=== PATIENT | male | born 1945 | race Caucasian/White ===

== ENCOUNTER → 2017-05-02 | Outpatient (CLI) | payer MEDICARE ==
[~2017-05-02] MED LIST: ACTOS; AMLO10TA82 PO; ASPI-892; CETI5TAB6; CRESTOR PO; CULTURELLE CAP1 EACH PO; EPIN0.3P2 IM; EQUATE ALLERGY; GLYB2.5T2; LISI10TA; LRT10T; LVT.1T PO; METF-380; METH500T5 PO; OMG1KC; PRAV40TA; PRD20T PO; PRD50T PO; [UNRECOGNIZED DRUG - OTHER]
--- NOTE | 2017-05-02 09:29 | Diagnostic Imaging Report ---
CLINICAL INDICATION: Patient with headache on right side, has a swollen gland per doctor. Patient has a sore throat. No surgeries on either head/neck. EXAMS: 1: Head CT without IV contrast. 2: CT scan of the neck performed without IV contrast. Coronal reformatted images are created. FINDINGS: Head CT scan: There is no evidence of acute cerebral infarct, intracranial hemorrhage, or gross mass effect. There are several focal and patchy areas of low-attenuation white matter changes seen throughout both cerebral hemispheres, likely representing mild chronic small-vessel ischemic disease. There is normal wheat-white matter distinction. The brain parenchymal volume appears appropriate for patient's age. There is no significant midline shift or herniation. There is no evidence of hydrocephalus. The basal cisterns are unremarkable. The skull, extracranial soft tissue, and orbits are unremarkable. There is minimal mucosal thickening involving the ethmoid sinus and right maxillary sinus. Neck CT scan: There is no neck soft tissue mass, fluid collection, or fat stranding seen. The nasopharynx, oropharynx, hypopharynx, and laryngeal soft tissue structures are relatively symmetric with no significant abnormality. The bilateral salivary glands are unremarkable. There are no stones, evidence of dilated ducts, or adjacent fat stranding. Visualized portions of the tongue, sublingual space, and submandibular region show no significant abnormality. There is a small level IA lymph node with fatty hilum seen measuring 7 mm x 4 mm. There is no neck lymphadenopathy. Thyroid gland is obscured by streak artifact and not well visualized on this exam. There is bilateral apical pleural-parenchymal scarring/thickening seen. There is cervical spine degenerative disease with vertebral body spurs noted. IMPRESSION: 1: Age-related brain parenchymal changes with no evidence of acute intracranial process. 2: There is no significant neck soft tissue abnormality seen. There is no neck soft tissue mass, fluid collection, lymphadenopathy, or fat stranding. There is no significant salivary gland abnormality. 3: The thyroid gland is obscured by streak artifact and not appropriately visualized on this exam. If there is concern for thyroid gland abnormality, then thyroid ultrasound would better evaluate. Dictated by: Dictated on workstation # [id number]
== END ==
LOC: RAD 07:47
PROVIDERS: ATTEND Internal Medicine
DX: R51 Headache (principal); R22.1 Localized swelling, mass and lump, neck
CPT/HCPCS: 70450; 70490

== ENCOUNTER 2018-01-06 16:50 | Observation (INO) | payer MEDICARE ==
[~2018-01-06] VITALS: Ht 185.4 cm; Wt 81.4 kg
--- OUTSIDE RECORDS SUMMARY | 2018-01-06 16:56 | XMS REPORT | Continuity of Care Document ---
Author Author [facility] Organization [facility] Address Unknown Phone Unavailable Allergies Active Description Code Type Severity Reaction Onset Reported/Identified Relationship to Patient Clinical Status Yes No Known Drug Allergies [id number] Drug Allergy Mild N/A 06/22/2009 Medications There is no data. Problems Date Dx Coded Attending Type Code Diagnosis Diagnosed By 04/12/2010 Ot 995.0 06/24/2010 Ot 708.9 12/26/2014 MADELEINE CROONADO, DURGA Bryan Ot 959.2 12/26/2014 DURGA SALVADOR MD Ot 959.4 12/26/2014 DURGA SALVADOR MD Ot E819.9 12/26/2014 DURGA SALVADOR MD Ot 250.00 12/26/2014 DURGA SALVADOR MD Ot 272.4 12/26/2014 DURGA SALVADOR MD Ot 401.9 01/02/2015 JAY CORONADO, ARSENIO Gallegos Ot 244.9 01/02/2015 JAY CORONADO, ARSENIO Gallegos Ot 272.4 01/02/2015 JAY CORONADO, ARSENIO Gallegos Ot 562.10 01/02/2015 JAY CORONADO, ARSENIO Gallegos Ot V76.51 01/31/2015 JAY CORONADO, ARSENIO Gallegos Ot 244.9 01/31/2015 JAY CORONADO, ARSENIO Gallegos Ot 272.4 01/31/2015 JAY CORONADO, ARSENIO Gallegos Ot 562.10 01/31/2015 JAY CORONADO, ARSENIO Gallegos Ot V76.51 04/27/2017 JAY CORONADO, ARSENIO Gallegos Ot 244.9 HYPOTHYROIDISM NOS 04/27/2017 JAY CORONADO, ARSENIO Gallegos Ot 272.4 HYPERLIPIDEMIA NEC/NOS 04/27/2017 JAY CORONADO, ARSENIO Gallegos Ot 562.10 DIVERTICULOSIS COLON (W/O MENT OF HEMORR 04/27/2017 JAY CORONADO, ARSENIO Gallegos Ot V76.51 SCREEN MAL NEOP-COLON 04/27/2017 ARSENIO THOMPSON MD Ot 244.9 HYPOTHYROIDISM NOS 04/27/2017 ARSENIO THOMPSON MD Ot 272.4 HYPERLIPIDEMIA NEC/NOS 04/27/2017 ARSENIO THOMPSON MD Ot 562.10 DIVERTICULOSIS COLON (W/O MENT OF HEMORR 04/27/2017 ARSENIO THOMPSON MD Ot V76.51 SCREEN MAL NEOP-COLON 05/24/2017 DURGA SALVADOR MD Ot R22.1 LOCALIZED SWELLING, MASS AND LUMP, NECK 05/24/2017 DURGA SALVADOR MD Ot R51 HEADACHE 06/02/2017 DURGA SALVADOR MD Ot R22.1 LOCALIZED SWELLING, MASS AND LUMP, NECK 06/02/2017 DURGA SALVADOR MD Ot R51 HEADACHE Procedures There is no data. Results There is no data. Encounters ACCT No. Visit Date/Time Discharge Status Pt. Type Provider Facility Loc./Unit Complaint [id number] 05/02/2017 07:47:00 05/02/2017 23:59:59 CLS Outpatient DURGA SALVADOR MD [facility] RAD HEADACHES, RT NECK MASS [id number] 12/30/2014 06:54:00 12/30/2014 23:59:59 CLS Outpatient ARSENIO THOMPSON MD [facility] SDC SCREENING [id number] 12/26/2014 05:56:00 12/26/2014 23:59:59 CLS Outpatient ARSENIO THOMPSON MD [facility] PREOP [id number] 04/23/2014 06:49:00 04/23/2014 23:59:59 CLS Outpatient DURGA SALVADOR MD [facility] CARD [id number] 04/08/2014 10:17:00 04/08/2014 23:59:59 CLS Outpatient DURGA SALVADOR MD [facility] RAD [id number] 12/26/2014 05:56:00 Document Registration [id number] 04/12/2010 19:34:00 Document Registration
--- NOTE | 2018-01-06 17:17 | ED Trauma-Multisystem ---
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 He does not recall striking his head, he does not recall what happened. His brother who was working cattle with him states that he does not believe the cow actually hit him , but rather ran into him and knocked him over. He does have small ecchymosis left scalp, left flank and complains of chest and right lower abdomen pain as well as some neck "stiffness". Severity: Moderate Modifying Factors: No Movement Loss of Consciousness: Unsure Associated Symptoms (Fall): Abdominal Pain, Chest Pain; No Neck Pain Allergies and Home Medications Allergies Coded Allergies: No Known Drug Allergies (Verified , 06/22/09) Home Medications Levothyroxine Sodium 175 Mcg Tablet, 175 MCG PO DAILY, (Reported) Potassium Chloride 10 Meq Tablet.er, 10 MEQ PO BID, (Reported) [Crestor] , 5 MG PO DAILY, (Reported) Patient Home Medication List Home Medication List Reviewed: Yes Review of Systems Constitutional: see HPI Eyes: No Symptoms Reported Ears: No Symptoms Reported Nose: No Symptoms Reported Mouth: No Symptoms Reported Throat: No Symptoms to Report Respiratory: no symptoms reported Cardiovascular: See HPI, Chest Pain Genitourinary: no symptoms reported Musculoskeletal: see HPI Skin: no symptoms reported Psychiatric/Neurological: No Symptoms Reported Past Hrygcug-Gjzoip-Xsnaux Hx Patient Social History Recent Foreign Travel: No Contact w/Someone Who Travel: No Immunizations Up To Date Date of Pneumonia Vaccine: May 28, 2008 Date of Influenza Vaccine: Aug 05, 2014 Physical Exam Vital Signs Vital Signs - First Documented 01/06/18 16:56 Temp 95.5 Pulse 59 Resp 16 B/P (MAP) 160/93 (115) Pulse Ox 99 General Appearance: No Apparent Distress, WD/WN, Other (Alert and oriented to person place time and situation but cannot recall what happened. Cannot recall what he had for lunch. ) Head: Other (left parietal scalp ecchymosis, no hematoma) Eyes: Bilateral Eye Normal Inspection, Bilateral Eye EOMI Ears, Nose, Throat: Hearing Grossly Normal, No Evidence of ENT Injury Neck: Full Range of Motion, Normal Inspection; No Tender Lateral, No Tender Midline Cardiovascular: Regular Rate, Rhythm, Normal Peripheral Pulses Respiratory: Normal Breath Sounds, No Accessory Muscle Use, No Respiratory Distress Gastrointestinal: Normal Bowel Sounds, Soft, Other (right lower abdomen tender to palpation, no abrasion erythema or ecchymosis. ) Extremity: Normal Capillary Refill, Normal Inspection Neurologic/Psychiatric: Alert, Oriented x3, No Motor/Sensory Deficits, Other ( abrasion left flank) Skin: Normal Color, Warm/Dry Angelito Coma Score Best Eye Response (Rampart): (4) Open Spontaneously Best Verbal Response (Angelito): (4) Confused Conversation Best Motor Response (Rampart): (6) Obeys Commands Rampart Total: 14 Progress/Results/Core Measures Lab Results Laboratory Tests Test 01/06/18 17:26 Range/Units White Blood Count 6.8 4.3-11.0 10^3/uL Red Blood Count 4.16 L 4.35-5.85 10^6/uL Hemoglobin 14.0 13.3-17.7 G/DL Hematocrit 41 40-54 % Mean Corpuscular Volume 98 80-99 FL Mean Corpuscular Hemoglobin 34 25-34 PG Mean Corpuscular Hemoglobin Concent 35 32-36 G/DL Red Cell Distribution Width 12.5 10.0-14.5 % Platelet Count 186 130-400 10^3/uL Mean Platelet Volume 9.7 7.4-10.4 FL Neutrophils (%) (Auto) 57 42-75 % Lymphocytes (%) (Auto) 30 12-44 % Monocytes (%) (Auto) 10 0-12 % Eosinophils (%) (Auto) 3 0-10 % Basophils (%) (Auto) 1 0-10 % Neutrophils # (Auto) 3.9 1.8-7.8 X 10^3 Lymphocytes # (Auto) 2.0 1.0-4.0 X 10^3 Monocytes # (Auto) 0.7 0.0-1.0 X 10^3 Eosinophils # (Auto) 0.2 0.0-0.3 10^3/uL Basophils # (Auto) 0.0 0.0-0.1 10^3/uL Prothrombin Time 14.4 12.2-14.7 SEC INR Comment 1.1 0.8-1.4 Activated Partial Thromboplast Time 29 24-35 SEC Sodium Level 142 135-145 MMOL/L Potassium Level 3.7 3.6-5.0 MMOL/L Chloride Level 109 H 98-107 MMOL/L Carbon Dioxide Level 23 21-32 MMOL/L Anion Gap 10 5-14 MMOL/L Blood Urea Nitrogen 13 7-18 MG/DL Creatinine 0.85 0.60-1.30 MG/DL Estimat Glomerular Filtration Rate > 60 BUN/Creatinine Ratio 15 Glucose Level 87 70-105 MG/DL Calcium Level 8.8 8.5-10.1 MG/DL Total Bilirubin 0.6 0.1-1.0 MG/DL Aspartate Amino Transf (AST/SGOT) 24 5-34 U/L Alanine Aminotransferase (ALT/SGPT) 27 0-55 U/L Alkaline Phosphatase 85 40-136 U/L Total Protein 6.4 6.4-8.2 GM/DL Albumin 4.2 3.2-4.5 GM/DL My Orders Orders - ALINA LEHMAN APRN Cbc With Automated Diff (01/06/18 17:07) Protime With Inr (01/06/18 17:07) Partial Thromboplastin Time (01/06/18 17:07) Comprehensive Metabolic Panel (01/06/18 17:07) Ct Head/Face/Cervical Wo (01/06/18 17:07) Ct Chest/Abdomen/Pelvis W (01/06/18 17:07) Ekg Tracing (01/06/18 17:12) Iohexol Injection (Omnipaque 350 Mg/Ml 1 (01/06/18 18:30) Ns (Ivpb) (Sodium Chloride 0.9%) (01/06/18 18:30) Vital Signs/I&O 01/06/18 16:56 Temp 95.5 Pulse 59 Resp 16 B/P (MAP) 160/93 (115) Pulse Ox 99 Diagonstic Imaging: CT Comments NAME: RAHUL BRODY Armando [facility] REC#: [id number] PT STATUS: REG ER : 1945 PHYSICIAN: ALINA LEHMAN APRN ADMIT DATE: 01/06/18/ER *Draft Date of Exam:01/06/18 CT HEAD/FACE/CERVICAL WO PROCEDURE: CT head, face, and cervical spine without contrast. TECHNIQUE: Multiple contiguous axial images were obtained through the head, neck, and facial bones without the use of intravenous contrast. Sagittal and coronal reformations through the cervical spine and facial bones were also performed. INDICATION: Fall. FINDINGS: The ventricles and sulci are within normal limits. There is no hydrocephalus. There is no midline shift. There is no intracranial mass, hemorrhage or extra-axial fluid collection. The sinuses and mastoid air cells are clear. The calvarium is intact. The alignment of the cervical spine is normal. The vertebral body heights are well-maintained. There is multilevel degenerative disc disease and posterior facet arthropathy. There is no fracture or traumatic subluxation. The odontoid is intact and lateral masses are well aligned. The prevertebral soft tissues are within normal limits. The lung apices are clear. IMPRESSION: 1. No acute intracranial abnormality. 2. Moderate cervical spondylosis without acute fracture or traumatic subluxation. Dictated on workstation # [id number] Dict: 01/06/18 1814 Trans: 01/06/18 1820 [id number] Interpreted by: SEE HARRISON MD Electronically signed by Departure Communication (Admissions) Time/Spoke to Admitting Phy: 19:[address] Mora regarding observation for his repetitive questioning asking, concussion symptoms. He agrees to admit observation, every 4 hours neuro checks. Family Conversation NAME: RAHUL BRODY II MED REC#: [id number] PT STATUS: REG ER : 1945 PHYSICIAN: ALINA LEHMAN SENIOR GROUP MANAGER ADMIT DATE: 01/06/18/ER Draft Date of Exam:01/06/18 CT CHEST/ABDOMEN/PELVIS W PROCEDURE: CT chest, abdomen, and pelvis with contrast. TECHNIQUE: Multiple contiguous axial images were obtained through the chest, abdomen, and pelvis after the administration of intravenous contrast. INDICATION: Right lower quadrant tenderness, left flank pain, chest pain. FINDINGS: Chest: The lungs are free of infiltrate. There is no effusion or pneumothorax. A few subcentimeter subpleural nodular foci as benign findings are noted with no dominant or suspicious-appearing chest nodule. There is no thoracic lymphadenopathy. There is mild ectasia of the ascending aorta 3.9 cm. No clint aneurysmal formation. No mural hemorrhage, rupture or dissection. No acute chest abnormality. The ribs nonacute. Abdomen and pelvis: There is no bowel, biliary or urinary tract obstruction. The liver appeared nonfocal. The gallbladder unremarkable. The adrenals unremarkable. 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 There is no pneumatosis or free gas. There are pelvic phleboliths with no opaque ureteral stone. There is no hydronephrosis. There are nonobstructing intrarenal stones in the left kidney. There is no ascites, abscess, hematoma or fluid collection. There is no pericecal inflammatory change. There are no findings suggestive of appendicitis. Prostate, seminal vesicles and urinary bladder appeared nonacute. The osseous structures nonacute. There is no focal inflammatory process. No acute bony abnormality. IMPRESSION: 1. Chest: No acute chest abnormality. No suspicious mass. 2. Abdomen and pelvis: No obstructive features, inflammatory process or acute findings. Nonobstructing renal calculi on the left. Postsurgical changes. Nonobstructive constipation. No inflammatory process, ascites, fluid collection or free air. Dictated on workstation # [id number] Dict: 01/06/18 1826 Trans: 01/06/18 1841 LEIGHA [id number] Interpreted by: DENIZ WEIR Electronically signed by: 1831- Cervical collar removed at this time. 1843- he is very forgetful, repetitively asking "what happened to me?" Impression Primary Impression: Concussion Additional Impression: Chest wall contusion Disposition: ADMITTED INPATIENT Condition: Stable Admissions Decision to Admit Reason: Admit from ER (Trauma) Decision to Admit/Date: Jan 06, 2018 Time/Decision to Admit Time: 19:07 Departure-Patient Inst. Decision time for Depature: 18:44 Referrals: DURGA SALVADOR MD (PCP/Family) Primary Care Physician Patient Instructions: Concussion, Adult (DC) ALINA LEHMAN SENIOR GROUP MANAGER Jan 06, 2018 17:17
[2018-01-06 17:34] LABS: BASOPHILS % (AUTO) 1 % (0-10); EOSINOPHILS # (AUTO) 0.2 10^3/uL (0.0-0.3); EOSINOPHILS % (AUTO) 3 % (0-10); HEMATOCRIT 41 % (40-54); LYMPHOCYTES % (AUTO) 30 % (12-44); MEAN CORPUSCULAR HEMOGLOBIN 34 PG (25-34); MEAN CORPUSCULAR HGB CONC 35 G/DL (32-36); MEAN CORPUSCULAR VOLUME 98 FL (80-99); MEAN PLATELET VOLUME 9.7 FL (7.4-10.4); MONOCYTES # (AUTO) 0.7 X 10^3 (0.0-1.0); MONOCYTES % (AUTO) 10 % (0-12); NEUTROPHILS # (AUTO) 3.9 X 10^3 (1.8-7.8); NEUTROPHILS % (AUTO) 57 % (42-75); PLATELET COUNT 186 10^3/uL (130-400); RED BLOOD COUNT 4.16 10^6/uL (4.35-5.85); RED CELL DISTRIBUTION WIDTH 12.5 % (10.0-14.5); WHITE BLOOD COUNT 6.8 10^3/uL (4.3-11.0)
[2018-01-06 17:45] LABS: INR 1.1 (0.8-1.4); PROTHROMBIN TIME PATIENT 14.4 SEC (12.2-14.7)
[2018-01-06 17:51] LABS: ALANINE AMINOTRANSFERASE 27 U/L (0-55); ALBUMIN 4.2 GM/DL (3.2-4.5); ALKALINE PHOSPHATASE 85 U/L (40-136); BILIRUBIN,TOTAL 0.6 MG/DL (0.1-1.0); BUN/CREATININE RATIO 15; CALCIUM 8.8 MG/DL (8.5-10.1); CARBON DIOXIDE 23 MMOL/L (21-32); CHLORIDE 109 MMOL/L (98-107); CREATININE SERUM 0.85 MG/DL (0.60-1.30); GFR ESTIMATED > 60; GLUCOSE 87 MG/DL (70-105); POTASSIUM 3.7 MMOL/L (3.6-5.0); SODIUM 142 MMOL/L (135-145); TOTAL PROTEIN 6.4 GM/DL (6.4-8.2)
--- NOTE | 2018-01-06 18:21 | Diagnostic Imaging Report ---
PROCEDURE: CT head, face, and cervical spine without contrast. TECHNIQUE: Multiple contiguous axial images were obtained through the head, neck, and facial bones without the use of intravenous contrast. Sagittal and coronal reformations through the cervical spine and facial bones were also performed. INDICATION: Fall. FINDINGS: The ventricles and sulci are within normal limits. There is no hydrocephalus. There is no midline shift. There is no intracranial mass, hemorrhage or extra-axial fluid collection. The sinuses and mastoid air cells are clear. The calvarium is intact. The alignment of the cervical spine is normal. The vertebral body heights are well-maintained. There is multilevel degenerative disc disease and posterior facet arthropathy. There is no fracture or traumatic subluxation. The odontoid is intact and lateral masses are well aligned. The prevertebral soft tissues are within normal limits. The lung apices are clear. IMPRESSION: 1. No acute intracranial abnormality. 2. Moderate cervical spondylosis without acute fracture or traumatic subluxation. Dictated by: Dictated on workstation # [id number]
[2018-01-06] MEDS ORDERED: IOHEXOL 350 MG/ML 100 ML (OMNIPAQUE 350) VIAL IV ONE (18:30)
[2018-01-06] MEDS ORDERED: NS 250 ML (IVPB) BAG IV ONE (18:30)
--- NOTE | 2018-01-06 18:41 | Diagnostic Imaging Report ---
PROCEDURE: CT chest, abdomen, and pelvis with contrast. TECHNIQUE: Multiple contiguous axial images were obtained through the chest, abdomen, and pelvis after the administration of intravenous contrast. INDICATION: Right lower quadrant tenderness, left flank pain, chest pain. FINDINGS: Chest: The lungs are free of infiltrate. There is no effusion or pneumothorax. A few subcentimeter subpleural nodular foci as benign findings are noted with no dominant or suspicious-appearing chest nodule. There is no thoracic lymphadenopathy. There is mild ectasia of the ascending aorta 3.9 cm. No clint aneurysmal formation. No mural hemorrhage, rupture or dissection. No acute chest abnormality. The ribs nonacute. Abdomen and pelvis: There is no bowel, biliary or urinary tract obstruction. The liver appeared nonfocal. The gallbladder unremarkable. The adrenals unremarkable. 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 There is no pneumatosis or free gas. There are pelvic phleboliths with no opaque ureteral stone. There is no hydronephrosis. There are nonobstructing intrarenal stones in the left kidney. There is no ascites, abscess, hematoma or fluid collection. There is no pericecal inflammatory change. There are no findings suggestive of appendicitis. Prostate, seminal vesicles and urinary bladder appeared nonacute. The osseous structures nonacute. There is no focal inflammatory process. No acute bony abnormality. IMPRESSION: 1. Chest: No acute chest abnormality. No suspicious mass. 2. Abdomen and pelvis: No obstructive features, inflammatory process or acute findings. Nonobstructing renal calculi on the left. Postsurgical changes. Nonobstructive constipation. No inflammatory process, ascites, fluid collection or free air. Dictated by: Dictated on workstation # [id number]
--- OUTSIDE RECORDS SUMMARY | 2018-01-06 19:24 | XMS REPORT | Continuity of Care Document ---
Author Author [facility] Organization [facility] Address Unknown Phone Unavailable Allergies Active Description Code Type Severity Reaction Onset Reported/Identified Relationship to Patient Clinical Status Yes No Known Drug Allergies [id number] Drug Allergy Mild N/A 06/22/2009 Medications There is no data. Problems Date Dx Coded Attending Type Code Diagnosis Diagnosed By 04/12/2010 Ot 995.0 06/24/2010 Ot 708.9 12/26/2014 MADELEINE CORONADO, DURGA Bryan Ot 959.2 12/26/2014 DURGA SALVADOR [...] (W/O MENT OF HEMORR 04/27/2017 ARSENIO THOMPSON MD, Ot V76.51 SCREEN MAL NEOP-COLON 05/24/2017 DURGA SALVADOR MD, Ot R22.1 LOCALIZED SWELLING, MASS AND LUMP, NECK 05/24/2017 DURGA SALVADOR MD, Ot R51 HEADACHE 06/02/2017 DURGA SALVADOR MD, Ot R22.1 LOCALIZED SWELLING, MASS AND LUMP, NECK 06/02/2017 DURGA SALVADOR MD, Ot R51 HEADACHE Procedures There is no data. Results Test Result Range Complete blood count (CBC) with automated white blood cell (WBC) differential - 01/06/18 17:26 Blood leukocytes automated count (number/volume) 6.8 10*3/uL 4.3-11.0 Blood erythrocytes automated count (number/volume) 4.16 10*6/uL 4.35-5.85 Venous blood hemoglobin measurement (mass/volume) 14.0 g/dL 13.3-17.7 Blood hematocrit (volume fraction) 41 % 40-54 Automated erythrocyte mean corpuscular volume 98 [foz_us] 80-99 Automated erythrocyte mean corpuscular hemoglobin (mass per erythrocyte) 34 pg 25-34 Automated erythrocyte mean corpuscular hemoglobin concentration measurement ( mass/volume) 35 g/dL 32-36 Automated erythrocyte distribution width ratio 12.5 % 10.0-14.5 Automated blood platelet count (count/volume) 186 10*3/uL 130-400 Automated blood platelet mean volume measurement 9.7 [foz_us] 7.4-10.4 Automated blood neutrophils/100 leukocytes 57 % 42-75 Automated blood lymphocytes/100 leukocytes 30 % 12-44 Blood monocytes/100 leukocytes 10 % 0-12 Automated blood eosinophils/100 leukocytes 3 % 0-10 Automated blood basophils/100 leukocytes 1 % 0-10 Blood neutrophils automated count (number/volume) 3.9 10*3 1.8-7.8 Blood lymphocytes automated count (number/volume) 2.0 10*3 1.0-4.0 Blood monocytes automated count (number/volume) 0.7 10*3 0.0-1.0 Automated eosinophil count 0.2 10*3/uL 0.0-0.3 Automated blood basophil count (count/volume) 0.0 10*3/uL 0.0-0.1 PT panel in platelet poor plasma by coagulation assay - 01/06/18 17:26 Prothrombin time (PT) in platelet poor plasma by coagulation assay 14.4 s 12.2-14.7 INR in platelet poor plasma or blood by coagulation assay 1.1 0.8-1.4 Activated partial thromboplastin time (aPTT) in platelet poor plasma bycoagulation assay - 01/06/18 17:26 Activated partial thromboplastin time (aPTT) in platelet poor plasma bycoagulation assay 29 s 24-35 Comprehensive metabolic panel - 01/06/18 17:26 Serum or plasma sodium measurement (moles/volume) 142 mmol/L 135-145 Serum or plasma potassium measurement (moles/volume) 3.7 mmol/L 3.6-5.0 Serum or plasma chloride measurement (moles/volume) 109 mmol/L 98-107 Carbon dioxide 23 mmol/L 21-32 Serum or plasma anion gap determination (moles/volume) 10 mmol/L 5-14 Serum or plasma urea nitrogen measurement (mass/volume) 13 mg/dL 7-18 Serum or plasma creatinine measurement (mass/volume) 0.85 mg/dL 0.60-1.30 Serum or plasma urea nitrogen/creatinine mass ratio 15 NRG Serum or plasma creatinine measurement with calculation of estimated glomerular filtration rate > NRG Serum or plasma glucose measurement (mass/volume) 87 mg/dL 70-105 Serum or plasma calcium measurement (mass/volume) 8.8 mg/dL 8.5-10.1 Serum or plasma total bilirubin measurement (mass/volume) 0.6 mg/dL 0.1-1.0 Serum or plasma alkaline phosphatase measurement (enzymatic activity/volume) 85 U/L 40-136 Serum or plasma aspartate aminotransferase measurement (enzymatic activity/ volume) 24 U/L 5-34 Serum or plasma alanine aminotransferase measurement (enzymatic activity/volume ) 27 U/L 0-55 Serum or plasma protein measurement (mass/volume) 6.4 g/dL 6.4-8.2 Serum or plasma albumin measurement (mass/volume) 4.2 g/dL 3.2-4.5 Encounters ACCT No. Visit Date/Time Discharge Status Pt. Type Provider Facility Loc./Unit Complaint [id number] 05/02/2017 07:47:00 05/02/2017 23:59:59 CLS Outpatient DURGA SALVADOR MD [facility] RAD HEADACHES, RT NECK MASS [id number] 12/30/2014 06:54:00 12/30/2014 23:59:59 CLS Outpatient ARSENIO THOMPSON MD [facility] SDC SCREENING [id number] 12/26/2014 05:56:00 12/26/2014 23:59:59 CLS Outpatient ARSENIO THOMPSON MD [facility] PREOP [id number] 04/23/2014 06:49:00 04/23/2014 23:59:59 CLS Outpatient DURGA SALVADOR MD [facility] CARD [id number] 04/08/2014 10:17:00 04/08/2014 23:59:59 CLS Outpatient DURGA SALVADOR MD [facility] RAD [id number] 01/06/2018 17:35:00 Document Registration [id number] 12/26/2014 05:56:00 Document Registration [id number] 04/12/2010 19:34:00 Document Registration
[2018-01-06 19:45] VITALS: BP 156/73
[2018-01-06] MEDS ORDERED: CATHETER FLUSH 10 ML SYR IV PRN (20:00)
[2018-01-06] MEDS ORDERED: ACETAMINOPHEN 325 MG TABLET/CAPLET (TYLENOL) PO PRN (20:00)
[2018-01-06] MEDS: CATHETER FLUSH 10 ML SYR IV SCH (22:14)
[2018-01-07] VITALS: BP 132/69
[2018-01-07 03:48] VITALS: BP 134/75
[2018-01-07] MEDS: CATHETER FLUSH 10 ML SYR IV SCH (04:11)
[2018-01-07] MEDS ORDERED: LEVO175T5 PO (05:56)
[2018-01-07] MEDS ORDERED: POTA10TA10 PO (05:56)
[2018-01-07 08:00] VITALS: BP 109/63
--- NOTE | 2018-01-07 09:48 | History & Physicial ---
History of Present Illness History of Present Illness Reason for visit/HPI Fall to the ground, being chased [place] cow [place]. 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 He was brought to the emergency room and unable to remember the events leading to the fall, nor anything that happened thereafter.CT scans of his brain, cervical spine, chest, abdomen and pelvis are negative. Date of Admission Jan 06, 2018 at 7:06 pm Date Seen by Provider: Jan 07, 2018 Time Seen by Provider: 08:20 I consulted on this patient on 01/07/18 09:43 Attending Physician Arsenio Thompson MD Admitting Physician Tyrone Gross MD Consult Allergies and Home Medications Allergies Coded Allergies: No Known Drug Allergies (Verified , 06/22/09) Home Medications Levothyroxine Sodium 175 Mcg Tablet, 175 MCG PO DAILY, (Reported) Potassium Chloride 10 Meq Tablet.er, 10 MEQ PO BID, (Reported) [Crestor] , 5 MG PO DAILY, (Reported) Patient Home Medication List Home Medication List Reviewed: Yes Past Qwejmgs-Jlovaq-Vlgmkz Hx Patient Social History Marrital Status: Employed/Student: self-employed Alcohol Use: Denies Use Recreational Drug Use: No Smoking Status: Never a Smoker Physical Abuse Screen: No Sexual Abuse: No Recent Foreign Travel: No Contact w/other who traveled: No Recent Hopitalizations: No Recent Infectious Disease Expo: No Immunizations Up To Date Pediatric: Yes Date of Pneumonia Vaccine: May 28, 2008 Date of Influenza Vaccine: Aug 05, 2014 Seasonal Allergies Seasonal Allergies: No Surgeries Yes (MINI GASTRIC BYPASS) Abdominal Respiratory No Currently Using CPAP: No Currently Using BIPAP: No Cardiovascular Yes Neurological No Genitourinary No Gastrointestinal No Musculoskeletal No Endocrine History of Endocrine Disorders: Yes (TAKES THYROID MEDICATION UNSURE IF HYPO OR HYPER) Endocrine Disorders: Hypothyroidsim HEENT History of HEENT Disorders: No Cancer No Psychosocial History of Psychiatric Problem: No Blood Transfusions History of Blood Disorders: No Adverse Reaction to a Blood Tr: No Family Medical History Family Hx: Arthritis 19 MOTHER Dementia GRANDMA Neoplasm 19 FATHER (THROAT CANCER AND MULTILPLE MYELOMA) Parkinson's disease PATERNAL GRANDFATHER Constitutional: no symptoms reported EENTM: no symptoms reported Cardiovascular: no symptoms reported Gastrointestinal: no symptoms reported Genitourinary: no symptoms reported Musculoskeletal: joint pain Skin: no symptoms reported Psychiatric/Neurological: No Symptoms Reported Physical Exam Vital Signs Vital Signs - First Documented 01/06/18 01/06/18 16:56 19:35 Temp 95.5 Pulse 59 Resp 16 B/P (MAP) 160/93 (115) Pulse Ox 99 O2 Delivery Room Air Capillary Refill : Less Than 3 Seconds General Appearance: No Apparent Distress HEENT: Normal ENT Inspection Neck: Normal Inspection, Non Tender, Supple Respiratory: Lungs Clear Cardiovascular: Regular Rate, Rhythm Gastrointestinal: Non Tender, Soft Rectal: Deferred Genital/Rectal: Normal Genital Exam Back: Normal Inspection Extremity: Normal Inspection Neurologic/Psychiatric: Alert, Oriented x3 Skin: Warm/Dry Comments 1 cm abrasion over his left parietal region of the scalp. No hematoma. Slight limitation of movements of the right shoulder without any obvious point tenderness. Assessment/Plan Assessment and Plan gentleman with blunt trauma to his body resulting from a fall to the ground and his branch. Negative radiologic evaluation. Neurologic status intact. Could be discharged with instructions to call, with concerns. Admission Diagnosis Admission Status: Observation Clinical Quality Measures DVT/VTE Risk/Contraindication: Risk Factor Score Per Nursin RFS Level Per Nursing on Admit: 2=Moderate ARSENIO THOMPSON MD Jan 07, 2018 9:48 am
--- NOTE | 2018-01-07 09:50 | Discharge Inst-Simple/Standard ---
Discharge Inst-Standard Discharge Medications New, Converted or Re-Newed RX: Other Patient Instructions/Follow Up Plan of Care/Instructions/FU: Tylenol for pain over his right shoulder. To stay off work over the weekend. Call my office if needed Activity as Tolerated: No Goal: Off for over the weekend Discharge Diet: No Restrictions ARSENIO THOMPSON MD Jan 07, 2018 9:49 am
--- NOTE | 2018-01-12 09:20 | Physician Query-Final Dx ---
ROSALBA BLOOD 01/12/18 0920: Final Diagnosis Give Final Diagnosis Please give Final Diagnosis ARSENIO THOMPSON MD 01/12/18 1058: Final Diagnosis Give Final Diagnosis cerebral concussion ROSALBA BLOOD January 12, 2018 09:20 ARSENIO THOMPSON MD January 12, 2018 10:58
== END 2018-01-07 09:49 | disposition home or self-care (01) ==
LOC: EDUNIT# 16:50 → ER 16:52 → UNDOADMOB 19:06 → 4TH 19:06 → UNDODISOB 01-07 10:25
PROVIDERS: ADMIT Surgery; ATTEND Surgery
DX: S06.0X0A Concussion without loss of consciousness, initial encounter (principal); S00.03XA Contusion of scalp, initial encounter; S20.211A Contusion of right front wall of thorax, initial encounter; R07.9 Chest pain, unspecified; E03.9 Hypothyroidism, unspecified; M47.892 Other spondylosis, cervical region; W18.30XA Fall on same level, unspecified, initial encounter; Y92.79 Other farm location as the place of occurrence of the external cause; Y93.K9 Activity, other involving animal care; Z79.899 Other long term (current) drug therapy
CPT/HCPCS: 36415; 70450; 70486; 71260; 72125; 74177; 80053; 85025; 85610; 85730; 93005; G0378

== ENCOUNTER 2019-01-25 02:21 | Emergency (ER) | payer MEDICARE ==
[~2019-01-25] VITALS: Ht 188 cm; Wt 84.8 kg
[~2019-01-25 02:21] MED LIST changes: +LEVO175T5 PO; +POTA10TA10 PO
--- OUTSIDE RECORDS SUMMARY | 2019-01-25 02:28 | XMS REPORT | Continuity of Care Document ---
Author Organization Unknown Address Unknown Allergies Active Description Code Type Severity Reaction Onset Reported/Identified Relationship to Patient Clinical Status Yes No Known Drug Allergies [id number] Drug Allergy Mild N/A 06/22/2009 Medications There is no data. Problems Date Dx Coded Attending Type Code Diagnosis Diagnosed By 04/12/2010 Ot 995.0 06/24/2010 Ot 708.9 12/26/2014 DURGA SALVADOR MD Ot 959.2 12/26/2014 DURGA SALVADOR MD Ot 959.4 12/26/2014 DURGA SALVADOR MD Ot E819.9 12/26/2014 DURGA SALVADOR MD Ot 250.00 12/26/2014 DURGA SALVADOR MD Ot 272.4 12/26/2014 DURGA SALVADOR MD Ot 401.9 01/02/2015 JAY CORONADO, ARSENIO Gallegos Ot 244.9 01/02/2015 JAY CORONADO, ARSENIO Galleogs Ot 272.4 01/02/2015 JAY CORONADO, ARSENIO Gallegos Ot 562.10 01/02/2015 JAY CORONADO, ARSENIO Gallegos Ot V76.51 01/31/2015 JAY CORONADO, ARSENIO Gallegos Ot 244.9 01/31/2015 JAY CORONADO, ARSENIO Gallegos Ot 272.4 01/31/2015 JAY CORONADO, ARSENIO Gallegos Ot 562.10 01/31/2015 JAY CORONADO, ARSENIO Gallegos Ot V76.51 04/27/2017 ARSENIO THOMPSON MD Ot 244.9 HYPOTHYROIDISM NOS 04/27/2017 JAY CORONADO, ARSENIO Gallegos Ot 272.4 HYPERLIPIDEMIA NEC/NOS 04/27/2017 JAY CORONADO, ARSENIO Gallegos Ot 562.10 DIVERTICULOSIS COLON (W/O MENT OF HEMORR 04/27/2017 ARSENIO THOMPSON MD Ot V76.51 SCREEN MAL NEOP-COLON 04/27/2017 ARSENIO [...] 06/02/2017 DURGA SALVADOR MD Ot R51 HEADACHE 01/06/2018 ARSENIO THOMPSON MD Ot 244.9 HYPOTHYROIDISM NOS 01/06/2018 ARSENIO THOMPSON MD Ot 272.4 HYPERLIPIDEMIA NEC/NOS 01/06/2018 ARSENIO THOMPSON MD Ot 562.10 DIVERTICULOSIS COLON (W/O MENT OF HEMORR 01/06/2018 ARSENIO THOMPSON MD Ot V76.51 SCREEN MAL NEOP-COLON 01/06/2018 DURGA SALVADOR MD Ot R22.1 LOCALIZED SWELLING, MASS AND LUMP, NECK 01/06/2018 DURGA SALVADOR MD Ot R51 HEADACHE 01/07/2018 ARSENIO THOMPSON MD Ot E03.9 HYPOTHYROIDISM, UNSPECIFIED 01/07/2018 ARSENIO THOMPSON MD Ot M47.892 OTHER SPONDYLOSIS, CERVICAL REGION 01/07/2018 ARSENIO THOMPSON MD Ot R07.9 CHEST PAIN, UNSPECIFIED 01/07/2018 ARSENIO THOMPSON MD Ot S00.03XA CONTUSION OF SCALP, INITIAL ENCOUNTER 01/07/2018 ARSNEIO THOMPSON MD Ot S06.0X0A CONCUSSION WITHOUT LOSS OF CONSCIOUSNESS 01/07/2018 ARSENIO THOMPSON MD Ot S20.211A CONTUSION OF RIGHT FRONT WALL OF THORAX, 01/07/2018 ARSENIO THOMPSON MD Ot W18.30XA FALL ON SAME LEVEL, UNSPECIFIED, INITIAL 01/07/2018 ARSENIO THOMPSON MD Ot Y92.[address] 01/07/2018 ARSENIO THOMPSON MD Ot Y93.K9 ACTIVITY, OTHER INVOLVING ANIMAL CARE 01/07/2018 ARSENIO THOMPSON MD Ot 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 01/07/2018 ARSENIO THOMPSON MD Ot E03.9 HYPOTHYROIDISM, UNSPECIFIED 01/07/2018 ARSENIO THOMPSON MD Ot M47.892 OTHER SPONDYLOSIS, CERVICAL REGION 01/07/2018 ARSENIO THOMPSON MD Ot R07.9 CHEST PAIN, UNSPECIFIED 01/07/2018 ARSENIO THOMPSON MD Ot S00.03XA CONTUSION OF SCALP, INITIAL ENCOUNTER 01/07/2018 ARSENIO THOMPSON MD Ot S06.0X0A CONCUSSION WITHOUT LOSS OF CONSCIOUSNESS 01/07/2018 ARSENIO THOMPSON MD Ot S20.211A CONTUSION OF RIGHT FRONT WALL OF THORAX, 01/07/2018 ARSENIO THOMPSON MD Ot W18.30XA FALL ON SAME LEVEL, UNSPECIFIED, INITIAL 01/07/2018 ARSENIO THOMPSON MD Ot Y92.79 [facility] FARM LOC[facility] PLACE 01/07/2018 ARSENIO THOMPSON MD Ot Y93.K9 ACTIVITY, OTHER INVOLVING ANIMAL CARE 01/07/2018 ARSENIO THOMPSON MD Ot 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 01/12/2018 ARSENIO THOMPSON MD Ot E03.9 HYPOTHYROIDISM, UNSPECIFIED 01/12/2018 ARSENIO THOMPSON MD Ot M47.892 OTHER SPONDYLOSIS, CERVICAL REGION 01/12/2018 ARSENIO THOMPSON MD Ot R07.9 CHEST PAIN, UNSPECIFIED 01/12/2018 ARSENIO THOMPSON MD Ot S00.03XA CONTUSION OF SCALP, INITIAL ENCOUNTER 01/12/2018 ARSENIO THOMPSON MD Ot S06.0X0A CONCUSSION WITHOUT LOSS OF CONSCIOUSNESS 01/12/2018 ARSENIO THOMPSON MD Ot S20.211A CONTUSION OF RIGHT FRONT WALL OF THORAX, 01/12/2018 ARSENIO THOMPSON MD Ot W18.30XA FALL ON SAME LEVEL, UNSPECIFIED, INITIAL 01/12/2018 ARSENIO THOMPSON MD Ot Y92.79 [facility] FARM LOCATION PLACE 01/12/2018 ARSENIO THOMPSON MD Ot Y93.K9 ACTIVITY, OTHER INVOLVING ANIMAL CARE 01/12/2018 ARSENIO THOMPSON MD Ot 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 01/21/2018 ANNCHAD Moss MD, Ot E03.9 HYPOTHYROIDISM, UNSPECIFIED 01/21/2018 CHAD JUAREZ MD Ot S09.90XA UNSPECIFIED INJURY OF HEAD, INITIAL ENCO 01/21/2018 CHAD JUAREZ MD, Ot S50.811A ABRASION OF RIGHT FOREARM, INITIAL ENCOU 01/21/2018 CHAD JUAREZ MD, Ot S70.11XA CONTUSION OF RIGHT THIGH, INITIAL ENCOUN 01/21/2018 CHAD JUAREZ MD Ot W55.89XA OTHER CONTACT WITH OTHER MAMMALS, INITIA 01/21/2018 CHAD JUAREZ MD, Ot Z80.7 FAM HX OF MALIG NEOPLM OF LYMPHOID, CLARIBEL 01/21/2018 CHAD JUAREZ MD, Ot Z80.8 FAMILY HISTORY OF MALIGNANT NEOPLASM OF 01/21/2018 CHAD JUAREZ MD, Ot Z98.84 BARIATRIC SURGERY STATUS Procedures There is no data. Results Test [...] plasma albumin measurement (mass/volume) 4.2 g/dL 3.2-4.5 Complete blood count (CBC) with automated white blood cell (WBC) differential - 01/21/18 09:50 Blood leukocytes automated count (number/volume) 6.0 10*3/uL 4.3-11.0 Blood erythrocytes automated count (number/volume) 4.12 10*6/uL 4.35-5.85 Venous blood hemoglobin measurement (mass/volume) 13.6 g/dL 13.3-17.7 Blood hematocrit (volume fraction) 39 % 40-54 Automated erythrocyte mean corpuscular volume 96 [foz_us] 80-99 Automated erythrocyte mean corpuscular hemoglobin (mass per erythrocyte) 33 pg 25-34 Automated erythrocyte mean corpuscular hemoglobin concentration measurement ( mass/volume) 35 g/dL 32-36 Automated erythrocyte distribution width ratio 12.5 % 10.0-14.5 Automated blood platelet count (count/volume) 255 10*3/uL 130-400 Automated blood platelet mean volume measurement 9.2 [foz_us] 7.4-10.4 Automated blood neutrophils/100 leukocytes 59 % 42-75 Automated blood lymphocytes/100 leukocytes 23 % 12-44 Blood monocytes/100 leukocytes 15 % 0-12 Automated blood eosinophils/100 leukocytes 2 % 0-10 Automated blood basophils/100 leukocytes 1 % 0-10 Blood neutrophils automated count (number/volume) 3.6 10*3 1.8-7.8 Blood lymphocytes automated count (number/volume) 1.4 10*3 1.0-4.0 Blood monocytes automated count (number/volume) 0.9 10*3 0.0-1.0 Automated eosinophil count 0.1 10*3/uL 0.0-0.3 Automated blood basophil count (count/volume) 0.0 10*3/uL 0.0-0.1 Encounters ACCT No. Visit Date/Time Discharge Status Pt. Type Provider Facility Loc./Unit Complaint [id number] 01/21/2018 09:28:00 01/21/2018 11:53:00 DIS Emergency ANN CORONAOD, CHAD Ling [facility] ER FALL, FACIAL INJ/BLEEDING [id number] 01/06/2018 19:40:00 01/07/2018 09:49:00 DIS Inpatient ARSENIO THOMPSON MD [facility] 4TH CHI,CONCUSSION [id number] 05/02/2017 07:47:00 05/02/2017 23:59:59 CLS Outpatient DURGA SALVADOR MD [facility] RAD HEADACHES, RT NECK MASS [id number] 12/30/2014 06:54:00 12/30/2014 23:59:59 CLS Outpatient ARSENIO THOMPSON MD [facility] SDC SCREENING [id number] 12/26/2014 05:56:00 12/26/2014 23:59:59 CLS Outpatient ARSENIO THOMPSON MD [facility] PREOP [id number] 04/23/2014 06:49:00 04/23/2014 23:59:59 CLS Outpatient DURGA SALVADOR MD [facility] CARD [id number] 04/08/2014 10:17:00 04/08/2014 23:59:59 CLS Outpatient DURGA SALVADOR MD [facility] RAD [id number] 01/25/2019 02:23:00 ACT Emergency JYOTI CORONADO, RIVER Roberts [facility] ER BACK PAIN [id number] 12/26/2014 05:56:00 Document Registration [id number] 04/12/2010 19:34:00 Document Registration
--- NOTE | 2019-01-25 03:32 | ED Back Pain ---
General Chief Complaint: Back Problems Stated Complaint: BACK PAIN Nursing Triage Note: Pt amb to room #5 w/o difficulty. a&ox4. c/o rt sided flank pain and nausea that began @ 0100 this am. Reports pain is constant stating, "I just cant get comfortable no matter what I do." Denies urinary symtpoms. Nursing Sepsis Screen: No Definite Risk Source of Information: Patient, Spouse Exam Limitations: No Limitations History of Present Illness Date Seen by Provider: January 25, 2019 Time Seen by Provider: 03:18 Initial Comments Patient presents to ER by private conveyance with his spouse and chief complaint of right lower back pain. He has a history of back pain but nothing like this. He rates it as an 8 out of 10 and was accompanied with some nausea. There is no dysuria hematuria or hesitancy. No history of kidney stones. He has a history of sleeve gastrectomy so he does not use NSAIDs. He has not tried taking anything for it tonight. No fever or chills vomiting diarrhea. Allergies and Home Medications Allergies Coded Allergies: No Known Drug Allergies (Verified , 06/22/09) Home Medications Cephalexin 500 Mg Capsule, 500 MG PO BID Prescribed by: RIVER MONTES on 01/25/19444 Hydrocodone Bit/Acetaminophen 1 Tab Tab, 1-2 EACH PO Q6H PRN for PAIN-MODERATE Prescribed by: RIVER MONTES on 01/25/19444 Levothyroxine Sodium 175 Mcg Tablet, 175 MCG PO DAILY, (Reported) Ondansetron 4 Mg Tab.rapdis, 4 MG PO Q6H PRN for NAUSEA/VOMITING Prescribed by: RIVER MONTES on 01/25/19444 Potassium Chloride 10 Meq Tablet.er, 10 MEQ PO BID, (Reported) Tamsulosin HCl 0.4 Mg Cap, 0.4 MG PO HS Prescribed by: RIVER MONTES on 01/25/19444 [Crestor] , 5 MG PO DAILY, (Reported) Patient Home Medication List Home Medication List Reviewed: Yes Review of Systems Constitutional: No chills, No diaphoresis EENTM: No ear discharge, No ear pain Respiratory: No cough, No short of breath Cardiovascular: No chest pain, No edema Gastrointestinal: No abdominal pain, No constipation, No diarrhea; nausea; No vomiting Genitourinary: No discharge, No dysuria, No hematuria Past Djslyet-Nrjgud-Dvdwom Hx Patient Social History Alcohol Use: Occasionally Uses Number of Drinks Today: 0 Alcohol Beverage of Choice: Other Recreational Drug Use: No Smoking Status: Never a Smoker 2nd Hand Smoke Exposure: No Recent Foreign Travel: No Contact w/Someone Who Travel: No Recent Infectious Disease Expo: No Recent Hopitalizations: No Immunizations Up To Date PED Vaccines UTD: Yes Date of Pneumonia Vaccine: May 28, 2008 Date of Influenza Vaccine: Aug 05, 2014 Seasonal Allergies Seasonal Allergies: No Past Medical History Surgeries: Yes (MINI GASTRIC BYPASS) Abdominal Respiratory: No Currently Using CPAP: No Currently Using BIPAP: No Cardiac: Yes Neurological: No Genitourinary: No Gastrointestinal: No Musculoskeletal: No Endocrine: Yes (TAKES THYROID MEDICATION UNSURE IF HYPO OR HYPER) Hypothyroidsim HEENT: No Cancer: No Psychosocial: No Blood Disorders: No Adverse Reaction/Blood Tranf: No Family Medical History Arthritis 19 MOTHER Dementia GRANDMA Neoplasm 19 FATHER (THROAT CANCER AND MULTILPLE MYELOMA) Parkinson's disease PATERNAL GRANDFATHER Physical Exam Vital Signs Vital Signs - First Documented 01/25/19 02:43 Temp 97.6 Pulse 50 Resp 16 B/P (MAP) 165/135 (145) Pulse Ox 99 O2 Delivery Room Air Capillary Refill : Less Than 3 Seconds Height, Weight, BMI Height: 6'2.00" Weight: 187lbs. 8.0oz. 84.248889fb; 23.7 BMI Method:Stated General Appearance: WD/WN, Moderate Distress HEENT: PERRL/EOMI, Pharynx Normal, Moist Mucous Membranes Neck: Full Range of Motion, Normal Inspection Cardiovascular: Regular Rate, Rhythm, Normal Peripheral Pulses Respiratory: No Accessory Muscle Use, No Respiratory Distress Peripheral Pulses: 2+ Radial Pulses (R), 2+ Radial Pulses (L) Gastrointestinal: Normal Bowel Sounds, Non Tender, Soft Back: Normal Inspection; No CVA Tenderness (L); CVA Tenderness (R) Neurologic/Psychiatric: Alert, Oriented x3 Skin: Normal Color, Warm/Dry Progress/Results/Core Measures Results/Orders Lab Results Laboratory Tests Test 01/25/19 02:51 01/25/19 03:02 Range/Units White Blood Count 7.5 4.3-11.0 10^3/uL Red Blood Count 4.37 4.35-5.85 10^6/uL Hemoglobin 14.4 13.3-17.7 G/DL Hematocrit 43 40-54 % Mean Corpuscular Volume 98 80-99 FL Mean Corpuscular Hemoglobin 33 25-34 PG Mean Corpuscular Hemoglobin Concent 34 32-36 G/DL Red Cell Distribution Width 12.9 10.0-14.5 % Platelet Count 196 130-400 10^3/uL Mean Platelet Volume 10.1 7.4-10.4 FL Neutrophils (%) (Auto) 54 42-75 % Lymphocytes (%) (Auto) 30 12-44 % Monocytes (%) (Auto) 9 0-12 % Eosinophils (%) (Auto) 5 0-10 % Basophils (%) (Auto) 1 0-10 % Neutrophils # (Auto) 4.1 1.8-7.8 X 10^3 Lymphocytes # (Auto) 2.3 1.0-4.0 X 10^3 Monocytes # (Auto) 0.7 0.0-1.0 X 10^3 Eosinophils # (Auto) 0.4 H 0.0-0.3 10^3/uL Basophils # (Auto) 0.1 0.0-0.1 10^3/uL Sodium Level 142 135-145 MMOL/L Potassium Level 3.4 L 3.6-5.0 MMOL/L Chloride Level 108 H 98-107 MMOL/L Carbon Dioxide Level 21 21-32 MMOL/L Anion Gap 13 5-14 MMOL/L Blood Urea Nitrogen 14 7-18 MG/DL Creatinine 1.06 0.60-1.30 MG/DL Estimat Glomerular Filtration Rate > 60 BUN/Creatinine Ratio 13 Glucose Level 106 H 70-105 MG/DL Calcium Level 9.1 8.5-10.1 MG/DL Corrected Calcium 8.5-10.1 MG/DL Total Bilirubin 0.7 0.1-1.0 MG/DL Aspartate Amino Transf (AST/SGOT) 28 5-34 U/L Alanine Aminotransferase (ALT/SGPT) 33 0-55 U/L Alkaline Phosphatase 101 40-136 U/L C-Reactive Protein High Sensitivity 0.03 0.00-0.50 MG/DL Total Protein 7.3 6.4-8.2 GM/DL Albumin 4.6 H 3.2-4.5 GM/DL Urine Color YELLOW Urine Clarity VERY CLOUDY H Urine pH 5 5-9 Urine Specific [place] 1.020 1.016-1.022 Urine Protein 2+ H NEGATIVE Urine Glucose (UA) NEGATIVE NEGATIVE Urine Ketones NEGATIVE NEGATIVE Urine Nitrite NEGATIVE NEGATIVE Urine Bilirubin NEGATIVE NEGATIVE Urine Urobilinogen NORMAL NORMAL MG/DL Urine Leukocyte Esterase NEGATIVE NEGATIVE Urine RBC (Auto) 5+ H NEGATIVE Urine RBC TNTC H /HPF Urine WBC RARE /HPF Urine Squamous Epithelial Cells RARE /HPF Urine Crystals NONE /LPF Urine Bacteria TRACE /HPF Urine Casts NONE /LPF Urine Mucus NEGATIVE /LPF Urine Culture Indicated NO My Orders Orders - RIVER MONTES Ct Abd/Pelvis Wo(Kidney Stone) (01/25/19 03:29) Cbc With Automated Diff (01/25/19 03:29) Comprehensive Metabolic Panel (01/25/19 03:29) Hs C Reactive Protein (01/25/19 03:29) Ua Culture If Indicated (01/25/19 03:29) Fentanyl Injection (Sublimaze Injection (01/25/19 03:45) Ondansetron Injection (Zofran Injectio (01/25/19 04:45) Fentanyl Injection (Sublimaze Injection (01/25/19 04:45) Ceftriaxone For Iv Use (Rocephin For I (01/25/19 05:00) Hydrocodone/Apap 5/325 Tablet (Lortab 5 (01/25/19 05:00) Medications Given in ED Current Medications Medications Dose Ordered Sig/Frank Route Start Time Stop Time Status Last Admin Dose Admin Acetaminophen/ Hydrocodone Bitart 1 tab ONCE ONCE PO 01/25/19 05:00 01/25/19 05:01 DC 01/25/19 05:05 1 TAB Ceftriaxone Sodium 1000 mg/ Sterile Water 10 ml @ 200 mls/hr ONCE ONCE IV 01/25/19 05:00 01/25/19 05:02 DC 01/25/19 04:51 200 MLS/HR Fentanyl Citrate 50 mcg ONCE ONCE IVP 01/25/19 03:45 01/25/19 03:46 DC 01/25/19 03:49 50 MCG Fentanyl Citrate 75 mcg ONCE ONCE IVP 01/25/19 04:45 01/25/19 04:46 DC 01/25/19 04:48 75 MCG Ondansetron HCl 4 mg ONCE ONCE IVP 01/25/19 04:45 01/25/19 04:46 DC 01/25/19 04:48 4 MG Vital Signs/I&O 01/25/19 01/25/19 02:43 05:07 Temp 97.6 97.6 Pulse 50 59 Resp 16 16 B/P (MAP) 165/135 (145) 145/86 (105) Pulse Ox 99 99 O2 Delivery Room Air Room Air Blood Pressure Mean: 145 Progress Progress Note : Time: 04:37 Progress Note Fentanyl for pain. He declined anything for nausea at this time. Suspect kidney stone based on clinical exam and a copious blood in the urine. Is a lot of calcifications seen down here the Trigone of the bladder on the right side seen on previous exams as well. Very possible that a 2 mm stone. There is mild right-sided hydronephrosis which would correlate with the stone. Blood urine. He has bilateral nephrolithiasis. We'll treat him for a kidney stone. Diagnostic Imaging Diagonstic Imaging: CT (without contrast) Plain Films/CT/US/NM/MRI: abdomen, pelvis Comments There is some questionable mild right sided hydronephrosis. Approximate 2 mm calcification seen in the pelvis on the right. It is unclear calcifications within or just adjacent to the right UVJ. This was likely present on prior exam seen in 2018. Bilateral nephrolithiasis. Evaluation of the transverse and distal descending colon is limited secondary to poor distention. Some wall thickening of these portions of the colon cannot be excluded. Reviewed: Reviewed Night Hawk Study, Reviewed by Me Departure Impression Primary Impression: Ureteral calculus, right Disposition: 01 HOME, SELF-CARE Condition: Stable Departure-Patient Inst. Decision time for Depature: 04:40 Referrals: MIRTA GARNER MD, JOHN D MD (PCP/Family) Primary Care Physician Patient Instructions: Kidney Stones (DC) Add. Discharge Instructions: Drink plenty of fluids. Caffeine is acceptable. Use the Flomax 1 tablet every night to help the stone pass. Use the hydrocodone one to 2 tablets every 6 hours as needed for pain. Use the Zofran 1 tablet under the tongue every 6 hours as needed for nausea or vomiting. supervisor carbon paper coating the antibiotic and take one capsule twice a day for the next week. Strain your urine to catch the stone. Sometimes the stone will breakup into a fine sand and you will miss it. Usually symptoms resolve within 1-2 days after passing the stone. Take the stone with you to the urologist appointment. Call Dr. Garner, urology and request an appointment tomorrow morning. All discharge instructions reviewed with patient and/or family. Voiced understanding. Scripts Hydrocodone Bit/Acetaminophen (Hydrocodone/Acetaminophen 5/325mg Tablet) 1 Tab Tab 1-2 EACH PO Q6H PRN for PAIN-MODERATE MDD 10, #14 TAB 0 Refills Prov: RIVER MONTES 01/25/19 Tamsulosin HCl (Flomax) 0.4 Mg Cap 0.4 MG PO HS for 7 Days, #7 CAP 0 Refills Prov: RIVER MONTES 01/25/19 Cephalexin (Keflex) 500 Mg Capsule 500 MG PO BID for 7 Days, #14 CAP 0 Refills Prov: RIVER MONTES 01/25/19 Ondansetron (Ondansetron Odt) 4 Mg Tab.rapdis 4 MG PO Q6H PRN for NAUSEA/VOMITING, #12 TAB 0 Refills Prov: RIEVR MONTES 01/25/19 Copy Copies To 1: MIRTA GARNER MD, TITUS J January 25, 2019 03:32
[2019-01-25 03:35] LABS: BILIRUBIN,URINE NEGATIVE (NEGATIVE); CLARITY,URINE VERY CLOUDY; COLOR,URINE YELLOW; GLUCOSE, URINE (UA) NEGATIVE (NEGATIVE); KETONES,URINE NEGATIVE (NEGATIVE); LEUKOCYTE ESTERASE ,URINE NEGATIVE (NEGATIVE); NITRITE,URINE NEGATIVE (NEGATIVE); PH,URINE 5 (5-9); PROTEIN,URINE 2+ (NEGATIVE); UROBILINOGEN,URINE NORMAL (NORMAL)
[2019-01-25 03:36] LABS: BASOPHILS # (AUTO) 0.1 10^3/uL (0.0-0.1); BASOPHILS % (AUTO) 1 % (0-10); EOSINOPHILS # (AUTO) 0.4 10^3/uL (0.0-0.3); EOSINOPHILS % (AUTO) 5 % (0-10); HEMATOCRIT 43 % (40-54); HEMOGLOBIN 14.4 G/DL (13.3-17.7); LYMPHOCYTES # (AUTO) 2.3 X 10^3 (1.0-4.0); LYMPHOCYTES % (AUTO) 30 % (12-44); MEAN CORPUSCULAR HEMOGLOBIN 33 PG (25-34); MEAN CORPUSCULAR HGB CONC 34 G/DL (32-36); MEAN CORPUSCULAR VOLUME 98 FL (80-99); MEAN PLATELET VOLUME 10.1 FL (7.4-10.4); MONOCYTES # (AUTO) 0.7 X 10^3 (0.0-1.0); MONOCYTES % (AUTO) 9 % (0-12); NEUTROPHILS # (AUTO) 4.1 X 10^3 (1.8-7.8); NEUTROPHILS % (AUTO) 54 % (42-75); PLATELET COUNT 196 10^3/uL (130-400); RED CELL DISTRIBUTION WIDTH 12.9 % (10.0-14.5); WHITE BLOOD COUNT 7.5 10^3/uL (4.3-11.0)
[2019-01-25 03:42] LABS: RBC,URINE TNTC /HPF; WBC,URINE RARE /HPF
[2019-01-25 03:43] LABS: BACTERIA,URINE TRACE /HPF; SQUAMOUS EPITHELIAL CELL,UR RARE /HPF
[2019-01-25] MEDS ORDERED: fentaNYL INJECTION 100 MCG/2 ML AMP IVP ONE ×2 (03:45→04:45)
[2019-01-25 03:51] LABS: ALANINE AMINOTRANSFERASE 33 U/L (0-55); ALBUMIN 4.6 GM/DL (3.2-4.5); ALKALINE PHOSPHATASE 101 U/L (40-136); BILIRUBIN,TOTAL 0.7 MG/DL (0.1-1.0); BUN/CREATININE RATIO 13; CALCIUM 9.1 MG/DL (8.5-10.1); CARBON DIOXIDE 21 MMOL/L (21-32); CHLORIDE 108 MMOL/L (98-107); CREATININE SERUM 1.06 MG/DL (0.60-1.30); GFR ESTIMATED > 60; GLUCOSE 106 MG/DL (70-105); POTASSIUM 3.4 MMOL/L (3.6-5.0); SODIUM 142 MMOL/L (135-145); TOTAL PROTEIN 7.3 GM/DL (6.4-8.2)
[2019-01-25] MEDS ORDERED: ACHD5005 PO (04:45)
[2019-01-25] MEDS ORDERED: CEPH-507 PO (04:45)
[2019-01-25] MEDS ORDERED: ONDA4TAB11 PO (04:45)
[2019-01-25] MEDS ORDERED: TAMS0.4C98 PO (04:45)
[2019-01-25] MEDS ORDERED: ONDANSETRON 4 MG/2 ML (SDV) Z0FRAN IVP ONE (04:45)
[2019-01-25] MEDS ORDERED: cefTRIAXone FOR IV USE 1,000 MG in WATER (STERILE) FOR INJECTION 10 ML IV ONE (05:00)
[2019-01-25] MEDS ORDERED: HYDROcodone/APAP 5 MG/325 MG (LORTAB) TAB PO ONE (05:00)
[2019-01-25 05:07] VITALS: BP 145/86
--- NOTE | 2019-01-25 07:22 | Diagnostic Imaging Report ---
PROCEDURE: CT urinary tract, rule out kidney stone. TECHNIQUE: Multiple contiguous axial images were obtained through the abdomen and pelvis without the use of intravenous contrast. Auto Exposure Controls were utilized during the CT exam to meet ALARA standards for radiation dose reduction. INDICATION: Right flank pain. COMPARISON: 01/06/2018 FINDINGS: Included portions of the lung bases are clear. CT abdomen: Since the previous exam, there has been interval migration of 5-6 mm calculus within the mid to distal right ureter (image 108, series 3). Additionally, there appears to be 4 mm calculus at the right UVJ (image 135, series 3). As a result, there is mild asymmetric right-sided hydroureteronephrosis. There is also mild asymmetric stranding of the perirenal and periureteral fat on the right. Multiple additional bilateral nonobstructive renal calculi are seen. No calculi are seen within the left ureter. Additionally, there is no hydroureteronephrosis or other evidence of obstruction on the left. No focal renal masses are seen on this noncontrast exam. The adrenal glands, spleen, pancreas, and liver have an unremarkable noncontrast CT appearance. Postsurgical changes of the stomach are noted. Normal appendix cannot be adequately identified, but there is no pericecal inflammation. Note is made of thickened appearance to the wall of the transverse colon measuring approximately 1 cm. This portion of the colon is, however, decompressed. There is colonic diverticulosis, but no CT evidence of acute diverticulitis. There is no loculated fluid collection, free fluid, or free air within the abdomen. No abnormal mesenteric or retroperitoneal adenopathy is seen. There is moderate scattered calcified aortic and arterial atherosclerosis. Bony structures show no acute abnormalities. CT pelvis: Again, there appears to be a new calculus within the distal right ureter at the UVJ measuring 4 mm. Urinary bladder is otherwise unopacified. Prostate is mildly prominent measuring 5.4 x 5.8 cm. There is no loculated fluid collection, free fluid or free air within the pelvis. No abnormal adenopathy is identified. Bony structures show no acute abnormalities. IMPRESSION: 1. Interval migration of calculi into the right ureter as described above resulting in mild right-sided hydroureteronephrosis. The larger 5-6 mm calculus within the mid to distal right ureter was not described on [facility] report. Discrepancy will be relayed to the ER. 2. Multiple additional bilateral nonobstructive renal calculi. 3. Thickened appearance to the wall of the transverse colon. Findings may be artifactual and related to incomplete distention of this portion of the colon. However, appearance may also be seen with underlying infectious or inflammatory colitis, as well as underlying colonic malignancy. Correlation with colonoscopy or enema is recommended when clinically appropriate. 4. Colonic diverticulosis, but no CT evidence of acute diverticulitis. Report was faxed/called to Dr. Souza by darian at 7:20 am. JESS Gannon, was also notified. Dictated by: Dictated on workstation # [id number]
== END 2019-01-25 05:07 | disposition home or self-care (01) ==
LOC: EDUNIT# 02:21 → ER 02:23
DX: N13.2 Hydronephrosis with renal and ureteral calculous obstruction (principal); E03.9 Hypothyroidism, unspecified; Z98.84 Bariatric surgery status; Z80.0 Family history of malignant neoplasm of digestive organs; Z80.7 Family history of other malignant neoplasms of lymphoid, hematopoietic and related tissues
CPT/HCPCS: 36415; 74176; 80053; 81000; 85025; 86141

== ENCOUNTER 2019-01-27 19:47 | Emergency (ER) | payer MEDICARE ==
[~2019-01-27] VITALS: Ht 185.4 cm; Wt 84.8 kg
[~2019-01-27 19:47] MED LIST changes: +ACHD5005 PO; +CEPH-507 PO; +ONDA4TAB11 PO; +TAMS0.4C98 PO
--- NOTE | 2019-01-27 19:57 | NUR ---
PT STATES HE HAS APPT WITH DR. GARNER (UROLOGY) NEXT TUESDAY.
[2019-01-27] MEDS ORDERED: KETOROLAC 30 MG/ML VIAL IVP STA ×2 (20:14→20:55)
[2019-01-27] MEDS ORDERED: NS IV 1000 ML 1,000 ML IV SCH ×2 (20:14→21:19)
[2019-01-27] MEDS ORDERED: ONDANSETRON 4 MG/2 ML (SDV) Z0FRAN IVP ONE ×2 (20:15→21:00)
[2019-01-27] MEDS ORDERED: morphine INJ 10 MG/ML 1ML (SYR OR VIAL) IVP ONE (20:15)
[2019-01-27] MEDS ORDERED: morphine INJ 10 MG/ML 1ML (SYR OR VIAL) IVP STA (20:18)
--- NOTE | 2019-01-27 20:18 | ED GU-Male ---
General Chief Complaint: Abdominal/GI Problems Stated Complaint: STOMACH PAIN Nursing Triage Note: PT STATES BEING HERE TUESDAY AND DIAGNOSED WITH A KIDNEY STONE. PT STATES THAT PAIN HAS CONSTANT TODAY WITHOUT RELIEF OF HYDROCODONE. PT STATES INCREASE IN VOMITING. PT STATES HE HAS NOT PASSED THE STONE. Source: patient, family ( and grandson) Exam Limitations: no limitations History of Present Illness Date Seen by Provider: January 27, 2019 Time Seen by Provider: 20:10 Initial Comments 73-year-old male patient presents to the emergency department with complaints of a kidney stone that was diagnosed by Dr. Souza at [facility] ED on 01/25/19. Patient states he is scheduled to see Dr. Garner on Tuesday. Patient denies improvement with the hydrocodone. He rates his pain as a 9/10. Patient does have some nausea tonight. 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 Timing/Duration: intermittent, other (2-3 days) Severity/Quality: aching, sharp, stabbing Location: right flank Radiation: other (right low back) Activities at Onset: none Prior Genitourinary Problems: none Modifying Factors: Worsens With Palpation, Worsens With Urinating Allergies and Home Medications Allergies Coded Allergies: No Known Drug Allergies (Verified , 06/22/09) Home Medications Cephalexin 500 Mg Capsule, 500 MG PO BID Prescribed by: RIVER SOUZA on 01/25/19444 Hydrocodone Bit/Acetaminophen 1 Tab Tab, 1-2 EACH PO Q6H PRN for PAIN-MODERATE Prescribed by: RIVER SOUZA on 01/25/19444 Levothyroxine Sodium 175 Mcg Tablet, 175 MCG PO DAILY, (Reported) Ondansetron 4 Mg Tab.rapdis, 4 MG PO Q6H PRN for NAUSEA/VOMITING Prescribed by: RIVER SOUZA on 01/25/19 0445 Ondansetron 8 Mg Tab.rapdis, 8 MG PO Q6H PRN for NAUSEA/VOMITING Prescribed by: SHARON MALIN on 01/27/19 2241 Oxycodone HCl/Acetaminophen 1 Each Tablet, 1 TAB PO Q4H PRN for PAIN-MODERATE Prescribed by: SHARON MALIN on 01/27/19 2214 Phenazopyridine HCl 200 Mg Tablet, 1 TAB PO TID PRN for pain Prescribed by: SHARON MALIN on 01/27/194 Potassium Chloride 10 Meq Tablet.er, 10 MEQ PO BID, (Reported) Tamsulosin HCl 0.4 Mg Cap, 0.4 MG PO HS Prescribed by: RIVER SOUZA on 01/25/19 0445 [Crestor] , 5 MG PO DAILY, (Reported) Patient Home Medication List Home Medication List Reviewed: Yes Review of Systems Review of Systems Constitutional: No chills, No fever, No malaise Respiratory: no symptoms reported Cardiovascular: no symptoms reported Gastrointestinal: see HPI; No abdominal pain, No constipation, No diarrhea, No loss of appetite, No melena; nausea; No vomiting Genitourinary: see HPI; denies burning, denies discharge, denies dysuria; frequency, flank pain (right flank pain); denies hematuria Musculoskeletal: see HPI, back pain (right low back pain) Skin: no symptoms reported Psychiatric/Neurological: No Symptoms Reported All Other Systemes Reviewed Negative Unless Noted: Yes (Negative excepted noted.) Past Jsrfknu-Wqadep-Eldcws Hx Past Med/Social Hx: Reviewed Nursing Past Med/Soc Hx Patient Social History Alcohol Use: Denies Use Number of Drinks Today: II Alcohol Beverage of Choice: Other Recreational Drug Use: No 2nd Hand Smoke Exposure: No Recent Foreign Travel: No Contact w/Someone Who Travel: No Recent Infectious Disease Expo: No Recent Hopitalizations: No Immunizations Up To Date PED Vaccines UTD: Yes Date of Pneumonia Vaccine: May 28, 2008 Date of Influenza Vaccine: Aug 05, 2014 Seasonal Allergies Seasonal Allergies: No Past Medical History Surgeries: Yes (MINI GASTRIC BYPASS) Abdominal Respiratory: No Currently Using CPAP: No Currently Using BIPAP: No Cardiac: Yes Neurological: No Genitourinary: No Gastrointestinal: No Musculoskeletal: No Endocrine: Yes (TAKES THYROID MEDICATION UNSURE IF HYPO OR HYPER) Hypothyroidsim HEENT: No Cancer: No Psychosocial: No Blood Disorders: No Adverse Reaction/Blood Tranf: No Family Medical History Reviewed Nursing Family Hx Arthritis 19 MOTHER Dementia GRANDMA Neoplasm 19 FATHER (THROAT CANCER AND MULTILPLE MYELOMA) Parkinson's disease PATERNAL GRANDFATHER No Pertinent Family Hx Physical Exam Vital Signs Vital Signs - First Documented 01/27/19 19:52 Temp 97.7 Pulse 42 Resp 18 B/P (MAP) 209/98 (135) Pulse Ox 99 O2 Delivery Room Air Capillary Refill : Less Than 3 Seconds Height, Weight, BMI Height: 6'1.00" Weight: 187lbs. 8.0oz. 84.242145xp; 23.7 BMI Method:Stated General Appearance: WD/WN, no apparent distress HEENT: PERRL/EOMI, pharynx normal Neck: supple, normal inspection Cardiovascular: regular rate, rhythm, no edema, no murmur Respiratory: lungs clear, normal breath sounds, no respiratory distress, no accessory muscle use Gastrointestinal: normal bowel sounds, soft, no organomegaly; No distended; guarding (right lower quadrant and right flank guarding); No rebound; tenderness (right lower quadrant and right flank tenderness) Back: normal inspection, CVA tenderness (R); No CVA tenderness (L) Extremities: no pedal edema, normal capillary refill Neurologic/Psychiatric: alert, normal mood/affect, oriented x 3 Skin: normal color, warm/dry Progress/Results/Core Measures Suspected Sepsis Recent Fever Within 48 Hours: No Infection Criteria Present: None New/Unexplained Altered Menta: No Sepsis Screen: No Definite Risk SIRS Temperature:97.7 Pulse: 42 Respiratory Rate: 18 Laboratory Tests 01/27/19 20:30: White Blood Count 11.8H Blood Pressure 209 /98 Mean: 135 Laboratory Tests 01/27/19 20:30: Creatinine 1.24, Platelet Count 193, Total Bilirubin 0.7 Results/Orders Lab Results Laboratory Tests Test 01/27/19 20:30 01/27/19 21:50 Range/Units White Blood Count 11.8 H 4.3-11.0 10^3/uL Red Blood Count 4.40 4.35-5.85 10^6/uL Hemoglobin 14.5 13.3-17.7 G/DL Hematocrit 43 40-54 % Mean Corpuscular Volume 98 80-99 FL Mean Corpuscular Hemoglobin 33 25-34 PG Mean Corpuscular Hemoglobin Concent 34 32-36 G/DL Red Cell Distribution Width 13.1 10.0-14.5 % Platelet Count 193 130-400 10^3/uL Mean Platelet Volume 9.9 7.4-10.4 FL Neutrophils (%) (Auto) 85 H 42-75 % Lymphocytes (%) (Auto) 7 L 12-44 % Monocytes (%) (Auto) 7 0-12 % Eosinophils (%) (Auto) 0 0-10 % Basophils (%) (Auto) 0 0-10 % Neutrophils # (Auto) 10.1 H 1.8-7.8 X 10^3 Lymphocytes # (Auto) 0.8 L 1.0-4.0 X 10^3 Monocytes # (Auto) 0.9 0.0-1.0 X 10^3 Eosinophils # (Auto) 0.1 0.0-0.3 10^3/uL Basophils # (Auto) 0.0 0.0-0.1 10^3/uL Neutrophils % (Manual) 85 % Lymphocytes % (Manual) 8 % Monocytes % (Manual) 5 % Eosinophils % (Manual) 0 % Basophils % (Manual) 0 % Band Neutrophils 2 % Blood Morphology Comment NORMAL Sodium Level 142 135-145 MMOL/L Potassium Level 4.1 3.6-5.0 MMOL/L Chloride Level 106 98-107 MMOL/L Carbon Dioxide Level 21 21-32 MMOL/L Anion Gap 15 H 5-14 MMOL/L Blood Urea Nitrogen 15 7-18 MG/DL Creatinine 1.24 0.60-1.30 MG/DL Estimat Glomerular Filtration Rate 57 BUN/Creatinine Ratio 12 Glucose Level 148 H 70-105 MG/DL Calcium Level 9.5 8.5-10.1 MG/DL Corrected Calcium 8.5-10.1 MG/DL Total Bilirubin 0.7 0.1-1.0 MG/DL Aspartate Amino Transf (AST/SGOT) 41 H 5-34 U/L Alanine Aminotransferase (ALT/SGPT) 41 0-55 U/L Alkaline Phosphatase 105 40-136 U/L Total Protein 7.3 6.4-8.2 GM/DL Albumin 4.7 H 3.2-4.5 GM/DL Urine Color YELLOW Urine Clarity CLEAR Urine pH 5 5-9 Urine Specific [place] 1.020 1.016-1.022 Urine Protein 2+ H NEGATIVE Urine Glucose (UA) NEGATIVE NEGATIVE Urine Ketones 3+ H NEGATIVE Urine Nitrite NEGATIVE NEGATIVE Urine Bilirubin NEGATIVE NEGATIVE Urine Urobilinogen NORMAL NORMAL MG/DL Urine Leukocyte Esterase NEGATIVE NEGATIVE Urine RBC (Auto) 5+ H NEGATIVE Urine RBC 25-50 H /HPF Urine WBC RARE /HPF Urine Crystals NONE /LPF Urine Bacteria NEGATIVE /HPF Urine Casts NONE /LPF Urine Mucus NEGATIVE /LPF Urine Culture Indicated NO My Orders Orders - SHARON MALIN Cbc With Automated Diff (01/27/19 20:14) Comprehensive Metabolic Panel (01/27/19 20:14) Ua Culture If Indicated (01/27/19 20:14) Ed Iv/Invasive Line Start (01/27/19 20:14) Ketorolac Injection (Toradol Injection) (01/27/19 20:14) Morphine Injection (Morphine Injection (01/27/19 20:15) Ondansetron Injection (Zofran Injectio (01/27/19 20:15) Ns Iv 1000 Ml (Sodium Chloride 0.9%) (01/27/19 20:14) Morphine Injection (Morphine Injection (01/27/19 20:18) Manual Differential (01/27/19 20:30) Abdomen, Flat & Upright/Decub (01/27/19 20:41) Ondansetron Injection (Zofran Injectio (01/27/19 21:00) Famotidine Injection (Pepcid Injection) (01/27/19 20:55) Ketorolac Injection (Toradol Injection) (01/27/19 20:55) Fentanyl Injection (Sublimaze Injection (01/27/19 21:19) Ed Iv/Invasive Line Start (01/27/19 21:19) Ns Iv 1000 Ml (Sodium Chloride 0.9%) (01/27/19 21:19) Rx-Oxycodone/Apap 5-325 Mg (Rx-Percocet (01/27/19 22:30) Medications Given in ED Current Medications Medications Dose Ordered Sig/Frank Route Start Time Stop Time Status Last Admin Dose Admin Ondansetron HCl 4 mg ONCE ONCE IVP 01/27/19 21:00 01/27/19 21:01 DC 01/27/19 21:01 4 MG Ondansetron HCl 8 mg ONCE ONCE IVP 01/27/19 20:15 01/27/19 20:17 DC 01/27/19 20:37 8 MG Oxycodone/ Acetaminophen 1 ea Q4H PRN PO 01/27/19 22:30 01/27/19 22:44 DC 01/27/19 22:34 1 EA Vital Signs/I&O 01/27/19 01/27/19 19:52 22:42 Temp 97.7 97.7 Pulse 42 49 Resp 18 18 B/P (MAP) 209/98 (135) 155/90 (111) Pulse Ox 99 99 O2 Delivery Room Air 01/28/19 00:00 Intake Total 2000 ml Balance 2000 ml Capillary Refill : Less Than 3 Seconds Blood Pressure Mean: 135 Diagnostic Imaging Diagonstic Imaging: Xray Plain Films/CT/US/NM/MRI: abdomen Comments Date of Exam:01/27/19 ABDOMEN, FLAT UPRIGHT/DECUB INDICATION: Abdominal pain. COMPARISON: None. EXAMINATION: KUB and upright views of the abdomen were obtained. FINDINGS: Mild constipation without obstruction, ileus or free air. Osseous structures are age-appropriate. IMPRESSION: Mild constipation. Dictated on workstation # [id number] Reviewed: Reviewed by Me (radiology report reviewed by me) Departure Communication (Admissions) Patient seen and evaluated. Initial labs and a KUB obtained. Patient was given 4 mg of morphine and 8 mg of Zofran with little improvement in symptoms. Patient was given an additional 4 mg of Zofran, 30 mg Toradol, and 50 g if no improvement in symptoms. All laboratory and diagnostic findings discussed with the patient. We will plan for discharge to home with Percocet. Patient is to follow-up with Dr. Garner on Tuesday as previously scheduled and he will contact me in my office a Dr. Gross's if needed Tuesday. Impression Primary Impression: Kidney stones Disposition: HOME, SELF-CARE Condition: Improved Departure-Patient Inst. Decision time for Depature: 22:12 Referrals: MIRTA GARNER MD, JOHN D MD (PCP/Family) Primary Care Physician Patient Instructions: Kidney Stones in Adults Add. Discharge Instructions: All discharge instructions reviewed with patient and/or family. Voiced understanding. Medications as instructed. Tylenol [id number] 500 mg by mouth every 6 hours as needed for pain. Drink plenty of fluids including caffeinated beverages. Strain urine as instructed. Follow-up with Dr. Garner as previously instructed. Follow-up with Dr. Gross as an outpatient if needed. Return to the emergency department immediately for worsened symptoms, worsening pain, fever, inability to urinate, or any other concerns. Scripts Ondansetron (Ondansetron Odt) 8 Mg Tab.rapdis 8 MG PO Q6H PRN for NAUSEA/VOMITING, #10 TAB 1 Refill Prov: SHARON MALIN 01/27/19 Phenazopyridine HCl (Pyridium) 200 Mg Tablet 1 TAB PO TID PRN for pain, #30 TAB 0 Refills Prov: SHARON MALIN 01/27/19 Oxycodone HCl/Acetaminophen (Percocet 7.5-325 mg Tablet) 1 Each Tablet 1 TAB PO Q4H PRN for PAIN-MODERATE MDD 4 TABS, #20 TAB 0 Refills Prov: SHARON MALIN 01/27/19 SHARON MALIN January 27, 2019 20:18
[2019-01-27 20:36] LABS: BASOPHILS % (AUTO) 0 % (0-10); EOSINOPHILS # (AUTO) 0.1 10^3/uL (0.0-0.3); EOSINOPHILS % (AUTO) 0 % (0-10); HEMATOCRIT 43 % (40-54); HEMOGLOBIN 14.5 G/DL (13.3-17.7); LYMPHOCYTES # (AUTO) 0.8 X 10^3 (1.0-4.0); LYMPHOCYTES % (AUTO) 7 % (12-44); MEAN CORPUSCULAR HEMOGLOBIN 33 PG (25-34); MEAN CORPUSCULAR HGB CONC 34 G/DL (32-36); MEAN CORPUSCULAR VOLUME 98 FL (80-99); MEAN PLATELET VOLUME 9.9 FL (7.4-10.4); MONOCYTES # (AUTO) 0.9 X 10^3 (0.0-1.0); MONOCYTES % (AUTO) 7 % (0-12); NEUTROPHILS # (AUTO) 10.1 X 10^3 (1.8-7.8); NEUTROPHILS % (AUTO) 85 % (42-75); PLATELET COUNT 193 10^3/uL (130-400); RED CELL DISTRIBUTION WIDTH 13.1 % (10.0-14.5); WHITE BLOOD COUNT 11.8 10^3/uL (4.3-11.0)
[2019-01-27] MEDS ORDERED: FAMOTIDINE 20MG/2ML IV (PEPCID) IV STA (20:55)
[2019-01-27 21:00] LABS: ALANINE AMINOTRANSFERASE 41 U/L (0-55); ALBUMIN 4.7 GM/DL (3.2-4.5); ALKALINE PHOSPHATASE 105 U/L (40-136); BILIRUBIN,TOTAL 0.7 MG/DL (0.1-1.0); BUN/CREATININE RATIO 12; CALCIUM 9.5 MG/DL (8.5-10.1); CARBON DIOXIDE 21 MMOL/L (21-32); CHLORIDE 106 MMOL/L (98-107); CREATININE SERUM 1.24 MG/DL (0.60-1.30); GFR ESTIMATED 57; GLUCOSE 148 MG/DL (70-105); POTASSIUM 4.1 MMOL/L (3.6-5.0); SODIUM 142 MMOL/L (135-145); TOTAL PROTEIN 7.3 GM/DL (6.4-8.2)
[2019-01-27 21:16] LABS: BAND NEUTROPHILS 2 %; BASOPHILS % (MANUAL) 0 %; EOSINOPHILS % (MANUAL) 0 %; LYMPHOCYTES % (MANUAL) 8 %; MONOCYTES % (MANUAL) 5 %; NEUTROPHILS % (MANUAL) 85 %; RBC MORPH NORMAL
[2019-01-27] MEDS ORDERED: fentaNYL INJECTION 100 MCG/2 ML AMP IVP STA (21:19)
[2019-01-27 21:58] LABS: BILIRUBIN,URINE NEGATIVE (NEGATIVE); CLARITY,URINE CLEAR; COLOR,URINE YELLOW; GLUCOSE, URINE (UA) NEGATIVE (NEGATIVE); KETONES,URINE 3+ (NEGATIVE); LEUKOCYTE ESTERASE ,URINE NEGATIVE (NEGATIVE); NITRITE,URINE NEGATIVE (NEGATIVE); PH,URINE 5 (5-9); PROTEIN,URINE 2+ (NEGATIVE); UROBILINOGEN,URINE NORMAL (NORMAL)
--- NOTE | 2019-01-27 22:00 | Diagnostic Imaging Report ---
INDICATION: Abdominal pain. COMPARISON: None. EXAMINATION: KUB and upright views of the abdomen were obtained. FINDINGS: Mild constipation without obstruction, ileus or free air. Osseous structures are age-appropriate. IMPRESSION: Mild constipation. Dictated by: Dictated on workstation # [id number]
[2019-01-27 22:06] LABS: RBC,URINE 25-50 /HPF; WBC,URINE RARE /HPF
[2019-01-27 22:07] LABS: BACTERIA,URINE NEGATIVE /HPF
[2019-01-27] MEDS ORDERED: OXYC1TAB16 PO (22:14)
[2019-01-27] MEDS ORDERED: PHEN-640 PO (22:14)
[2019-01-27] MEDS ORDERED: RX-OXYCODONE/APAP 5-325 MG #4 TAB PK PO PRN (22:30)
[2019-01-27] MEDS ORDERED: ONDA8TAB13 PO (22:41)
[2019-01-27 22:42] VITALS: BP 155/90
== END 2019-01-27 22:44 | disposition home or self-care (01) ==
LOC: EDUNIT# 19:47 → ER 19:48
DX: N20.0 Calculus of kidney (principal); E03.9 Hypothyroidism, unspecified; Z98.84 Bariatric surgery status; Z80.0 Family history of malignant neoplasm of digestive organs; Z80.7 Family history of other malignant neoplasms of lymphoid, hematopoietic and related tissues
CPT/HCPCS: 36415; 74019; 80053; 81000; 85007; 85027

== ENCOUNTER 2019-01-30 14:33 | Outpatient (CLI) | payer MEDICARE ==
[~2019-01-30] VITALS: Ht 188 cm; Wt 84.8 kg
[~2019-01-30 14:33] MED LIST changes: -CHOL200059 PO; -CYAN100088 PO; -ROSU5TAB PO
[2019-01-30] MEDS ORDERED: ROSU5TAB PO (14:59)
[2019-01-30] MEDS ORDERED: CHOL200059 PO (14:59)
[2019-01-30] MEDS ORDERED: CYAN100088 PO (14:59)
== END 2019-01-30 15:10 | disposition home or self-care (01) ==
LOC: PREOP 14:33
PROVIDERS: ATTEND Urology
DX: Z01.818 Encounter for other preprocedural examination (principal)

== ENCOUNTER → 2019-01-30 | Outpatient (CLI) | payer MEDICARE ==
[~2019-01-30] MED LIST changes: +CHOL200059 PO; +CYAN100088 PO; +ONDA8TAB13 PO; +OXYC1TAB16 PO; +PHEN-640 PO; +ROSU5TAB PO
--- NOTE | 2019-01-30 13:07 | Diagnostic Imaging Report ---
Indication: Nephrolithiasis. KUB at 12:53 PM There is opaque suture in left upper and midabdomen. There is large amount of stool in the colon. There is calcified phleboliths in the pelvis. There are 2 small opacities projecting over the region of the inferior pole of the left kidney measuring 3 mm in length each. Impression: Possible left nephrolithiasis. Dictated by: Dictated on workstation # [id number]
== END ==
LOC: RAD 12:36
PROVIDERS: ATTEND Urology
DX: N20.2 Calculus of kidney with calculus of ureter (principal)
CPT/HCPCS: 74018

== ENCOUNTER 2019-01-31 07:49 | Day surgery (SDC) | payer MEDICARE ==
[~2019-01-31] VITALS: Ht 188 cm; Wt 84.8 kg
[2019-01-31] VITALS (9 sets, daily range): BP systolic 126–156; BP diastolic 69–97
[~2019-01-31 07:49] MED LIST changes: +CHOL200059 PO; +CYAN100088 PO; +ROSU5TAB PO
[2019-01-31] MEDS ORDERED: cefTRIAXone FOR IV USE 1,000 MG in WATER (STERILE) FOR INJECTION 10 ML IV ONE (08:15)
--- NOTE | 2019-01-31 08:34 | Diagnostic Imaging Report ---
INDICATION: Preop for lithotripsy. TIME OF EXAMINATION: 8:18 AM. COMPARISON: Correlation is made with the prior exam of one day earlier. FINDINGS: Pelvic calcifications are noted. The most medial right-sided pelvic calcification may represent a distal ureteric calculus. Calcific densities overlie the left renal shadow, consistent with renal calculi. The previously noted right-sided renal calculi on CT are not well seen on today's study. The bowel gas pattern is unremarkable. IMPRESSION: Left-sided renal calculi. There is also a probable distal right ureteric calculus. Dictated by: Dictated on workstation # [id number]
[2019-01-31] MEDS ORDERED: LACTATED RINGERS 1,000 ML IV PRN (08:40)
--- NOTE | 2019-01-31 09:13 | Progress Note-Pre Operative ---
Pre-Operative Progress Note H&P Reviewed The H&P was reviewed, patient examined and no changes noted. Date Seen by Provider: January 31, 2019 Time Seen by Provider: 09:13 Date H&P Reviewed: January 31, 2019 Time H&P Reviewed: 09:13 Pre-Operative Diagnosis: RT DISTAL URETERAL STONES MIRTA GARNER MD January 31, 2019 09:13
[2019-01-31] MEDS ORDERED: fentaNYL INJECTION 100 MCG/2 ML AMP ONE (09:35)
[2019-01-31] MEDS ORDERED: SEVOFLURANE (ULTANE) 15 ML INHAL SOLN ONE ×2 (09:37→09:59)
[2019-01-31] MEDS ORDERED: MIDAZOLAM 2 MG/2 ML (VERSED) VIAL ONE (09:37)
--- NOTE | 2019-01-31 09:43 | Progress Note-Post Operative ---
Post-Operative Progess Note Surgeon (s)/Wine Consultant (s) Surgeon MIRTA GARNER MD Wine Consultant: NONE Pre-Operative Diagnosis RT DISTAL URETERAL STONES Post-Operative Diagnosis SAME Procedure & Operative Findings Date of Procedure 01/31/19 Procedure Performed/Findings RT URETEROSCOPY WITH STONE EXTRACTION Anesthesia Type GENERAL Estimated Blood Loss Estimated blood loss (mL): NONE Specimens/Packing Specimens Removed RT URETERAL STONE Packing: NONE MIRTA GARNER MD January 31, 2019 09:43
--- NOTE | 2019-01-31 09:45 | Discharge Inst-Urology ---
Discharge Inst-Urology Patient Instructions/Follow Up Plan Please make appointment to been seen in office in 2 weeks Stone for analysis post seen by patient ( has it) Increase oral fluids for 48 hours and then as needed. Diet and Activity as tolerated. If questions or concerns contact your physician Or seek help at emergency department. MIRTA GARNER MD January 31, 2019 09:45
[2019-01-31] MEDS ORDERED: KETOROLAC 30 MG/ML VIAL ONE (09:56)
[2019-01-31] MEDS ORDERED: FUROSEMIDE 40 MG/4 ML INJ (LASIX) ONE (09:56)
[2019-01-31] MEDS ORDERED: proPOfol 200 MG/20 ML (DIPRIVAN) VIAL IV ONE (10:04)
[2019-01-31] MEDS ORDERED: LIDOCAINE PF 2% 5 ML (XYLOCAINE) VIAL ONE (10:04)
[2019-01-31] MEDS ORDERED: ONDANSETRON 4 MG/2 ML (SDV) Z0FRAN ONE (10:04)
[2019-01-31] MEDS ORDERED: DEXAMETHASONE 10 MG/ML (DECADRON) 1 ML VIAL ONE (10:04)
[2019-01-31] MEDS ORDERED: HYDROmorphone 2 MG/ML VIAL (DILAUDID) IV ONE (10:15)
[2019-01-31] MEDS ORDERED: ONDANSETRON 4 MG/2 ML (SDV) Z0FRAN IVP PRN (10:15)
--- NOTE | 2019-01-31 12:33 | Anesthesia-General Post-Op ---
General Patient Condition Mental Status/LOC: Same as Preop Cardiovascular: Satisfactory Nausea/Vomiting: Absent Respiratory: Satisfactory Pain: Controlled Complications: Absent Post Op Complications Complications None Follow Up Care/Instructions Patient Instructions None needed. Anesthesia/Patient Condition Patient Condition Patient is doing well, no complaints, stable vital signs, no apparent adverse anesthesia problems. No complications reported per nursing. NIESHA PRICE CRNA January 31, 2019 12:33
--- NOTE | 2019-01-31 14:03 | OPERATIVE REPORT ---
DATE OF SERVICE: 01/31/2019 PREOPERATIVE DIAGNOSES: 1. Right distal ureteral stone. 2. Bilateral renal stones. POSTOPERATIVE DIAGNOSES: 1. Right distal ureteral stone. 2. Bilateral renal stones. OPERATION PERFORMED: Cystoscopy, extraction of right ureteral stone, right ureteroscopy and retrograde urogram. SURGEON: Manas Garner MD ANESTHESIA: General. COMPLICATIONS: None. DESCRIPTION OF PROCEDURE: Under satisfactory general anesthesia, the patient in lithotomy position, genitalia were prepped and draped in the usual sterile fashion. Cystoscope was introduced and the bladder was visualized, abnormality was a stone at the right UVJ. It was grasped with the grasping forceps and removed completely. I went back with the cystoscope and dilated the right ureteral orifice intramural portion to accommodate a 6.9 Czech semirigid ureteroscope. There was no further stone. I removed it, reinserted the cystoscope, inserted a cone tipped ureteral catheter in the right ureteral orifice, injected contrast to confirm the integrity of the ureter. No filling defect. No dilatation. Complete emptying of the system on withdrawing the catheter. The bladder was evacuated. Cystoscope was removed. The patient tolerated the procedure and anesthesia well and was sent to the recovery room in stable condition. PLAN: We will send the stone for analysis after seen by the patient. I have given to his . When he comes to my office in two weeks, we will do complete workup for prevention of stone and give him stone instruction sheet. The plan was fully explained to the . Job ID: [id number] DocumentID: [id number] Dictated Date: 01/31/2019 10:14:21 Drum Sander Setter Date: 01/31/2019 14:02:24 Dictated By: MANAS GARNER MD
== END 2019-01-31 11:52 | disposition home or self-care (01) ==
LOC: SDC 07:49
PROVIDERS: ATTEND Urology
DX: N20.1 Calculus of ureter (principal); N20.0 Calculus of kidney; I10 Essential (primary) hypertension; E11.9 Type 2 diabetes mellitus without complications; E78.5 Hyperlipidemia, unspecified; N40.0 Benign prostatic hyperplasia without lower urinary tract symptoms; N52.9 Male erectile dysfunction, unspecified; E66.9 Obesity, unspecified; Z98.84 Bariatric surgery status; Z68.24 Body mass index [BMI] 24.0-24.9, adult; Z79.899 Other long term (current) drug therapy; Z11.2 Encounter for screening for other bacterial diseases
CPT/HCPCS: 74018; 87081; 88300

== ENCOUNTER 2019-05-09 02:42 | Emergency (ER) | payer MEDICARE ==
[~2019-05-09] VITALS: Ht 188 cm; Wt 84.4 kg
[2019-05-09] MEDS ORDERED: fentaNYL INJECTION 100 MCG/2 ML AMP IVP ONE ×2 (03:00→04:00)
[2019-05-09] MEDS ORDERED: ONDANSETRON 4 MG/2 ML (SDV) Z0FRAN IVP ONE (03:00)
[2019-05-09 03:02] LABS: BASOPHILS # (AUTO) 0.1 10^3/uL (0.0-0.1); BASOPHILS % (AUTO) 1 % (0-10); EOSINOPHILS # (AUTO) 0.2 10^3/uL (0.0-0.3); EOSINOPHILS % (AUTO) 2 % (0-10); HEMATOCRIT 42 % (40-54); HEMOGLOBIN 14.1 G/DL (13.3-17.7); LYMPHOCYTES # (AUTO) 2.5 X 10^3 (1.0-4.0); LYMPHOCYTES % (AUTO) 33 % (12-44); MEAN CORPUSCULAR HEMOGLOBIN 33 PG (25-34); MEAN CORPUSCULAR HGB CONC 34 G/DL (32-36); MEAN CORPUSCULAR VOLUME 100 FL (80-99); MEAN PLATELET VOLUME 9.5 FL (7.4-10.4); MONOCYTES # (AUTO) 0.8 X 10^3 (0.0-1.0); MONOCYTES % (AUTO) 10 % (0-12); NEUTROPHILS % (AUTO) 53 % (42-75); PLATELET COUNT 192 10^3/uL (130-400); RED CELL DISTRIBUTION WIDTH 13.1 % (10.0-14.5); WHITE BLOOD COUNT 7.6 10^3/uL (4.3-11.0)
[2019-05-09] MEDS ORDERED: MULT1CAP54 PO (03:19)
[2019-05-09] MEDS ORDERED: METH500T5 PO (03:19)
[2019-05-09 03:21] LABS: ALANINE AMINOTRANSFERASE 32 U/L (0-55); ALBUMIN 4.5 GM/DL (3.2-4.5); ALKALINE PHOSPHATASE 108 U/L (40-136); BILIRUBIN,TOTAL 0.7 MG/DL (0.1-1.0); BUN/CREATININE RATIO 11; CARBON DIOXIDE 24 MMOL/L (21-32); CHLORIDE 107 MMOL/L (98-107); CREATININE SERUM 1.02 MG/DL (0.60-1.30); GFR ESTIMATED > 60; GLUCOSE 83 MG/DL (70-105); POTASSIUM 3.7 MMOL/L (3.6-5.0); SODIUM 143 MMOL/L (135-145); TOTAL PROTEIN 7.1 GM/DL (6.4-8.2)
[2019-05-09] MEDS ORDERED: NS IV 1000 ML 1,000 ML IV ONE (03:29)
--- NOTE | 2019-05-09 03:33 | ED Abdominal Pain ---
General Chief Complaint: - Urinary Stated Complaint: POSS KIDNEY STONE ON LEFT SIDE Nursing Triage Note: believes he has a kidney stone, has a history of a kidney stone and states this feels the same as before. Sepsis Screen: No Definite Risk Source of Information: Patient, Old Records Exam Limitations: No Limitations (DARBY RAMIREZ MD) History of Present Illness Date Seen by Provider: May 09, 2019 Time Seen by Provider: 02:50 Initial Comments This 73-year-old gentleman presents to the emergency room with complaints of left-sided lower back pain radiating down into the left lower quadrant. He began having severe leg cramps about 01:00. Then about one hour later he developed nausea and the left sided pain. He has a history of recent right- sided ureteral stone requiring lithotripsy. During assessment for that ureteral stone, it was noted that he has multiple renal stones bilaterally. He states his present symptoms feel similar to his recent right-sided ureteral stone. His primary care provider is Dr. Salvador. His urologist is Dr. Garner. (DARBY RAMIREZ MD) Allergies and Home Medications Allergies Coded Allergies: No Known Drug Allergies (Verified , 05/09/19) Home Medications Cholecalciferol (Vitamin D3) 2,000 Unit Tablet, 2,000 UNIT PO DAILY, (Reported) Cyanocobalamin (Vitamin B-12) 1,000 Mcg Tablet, 1,000 MG PO DAILY, (Reported) Levothyroxine Sodium 175 Mcg Tablet, 175 MCG PO DAILY, (Reported) Potassium Chloride 10 Meq Tablet.er, 10 MEQ PO BID, (Reported) Rosuvastatin Calcium 5 Mg Tablet, 5 MG PO HS, (Reported) Patient Home Medication List Home Medication List Reviewed: Yes (DARBY RAMIREZ MD) Review of Systems Review of Systems Constitutional: no symptoms reported EENTM: No Symptoms Reported Respiratory: No Symptoms Reported Cardiovascular: No Symptoms Reported Gastrointestinal: See HPI Genitourinary: See HPI Musculoskeletal: no symptoms reported Skin: no symptoms reported Psychiatric/Neurological: No Symptoms Reported Endocrine: No Symptoms Reported Hematologic/Lymphatic: No Symptoms Reported (DARBY RAMIREZ MD) Past Jutfsgq-Rgxfxh-Ohucwp Hx Past Med/Social Hx: Reviewed and Corrections made (DARBY RAMIREZ MD) Patient Social History Alcohol Use: Regular Use Number of Drinks Today: II Alcohol Beverage of Choice: Other Recreational Drug Use: No 2nd Hand Smoke Exposure: No Recent Foreign Travel: No Contact w/Someone Who Travel: No Recent Infectious Disease Expo: No Recent Hopitalizations: No Physical Abuse: No Sexual Abuse: No Mistreated: No Fear: No (DARBY RAMIREZ MD) Immunizations Up To Date PED Vaccines UTD: Yes Date of Pneumonia Vaccine: May 28, 2008 Date of Influenza Vaccine: Aug 05, 2014 (DARBY RAMIREZ MD) Seasonal Allergies Seasonal Allergies: No (DARBY RAMIREZ MD) Past Medical History Surgeries: Yes (MINI GASTRIC BYPASS, knee scope) Abdominal, Orthopedic, Renal (lithotripsy), Tonsillectomy Respiratory: No Currently Using CPAP: No Currently Using BIPAP: No Cardiac: No Neurological: No Genitourinary: Yes Benign Prostatic Hyperpl, Kidney Stones Gastrointestinal: No Musculoskeletal: No Endocrine: Yes Hypothyroidsim HEENT: No Cancer: No Psychosocial: No Integumentary: No Blood Disorders: No Adverse Reaction/Blood Tranf: No (DARBY RAMIREZ MD) Family Medical History Reviewed Nursing Family Hx (DARBY RAMIREZ MD) Arthritis 19 MOTHER Dementia GRANDMA Neoplasm 19 FATHER (THROAT CANCER AND MULTILPLE MYELOMA) Parkinson's disease PATERNAL GRANDFATHER No Pertinent Family Hx (DARBY RAMIREZ MD) Physical Exam Vital Signs Vital Signs - First Documented 05/09/19 02:44 Temp 96.9 Pulse 40 Resp 18 B/P (MAP) 160/82 (108) Pulse Ox 99 (APOLONIA LINCOLN MD) Vital Signs Capillary Refill : Less Than 3 Seconds (DARBY RAMIREZ MD) Height/Weight/BMI Height: 6'2.00" Weight: 186lbs. 0.0oz. [id number]; 24.0 BMI Method:Stated General Appearance: WD/WN, mild distress HEENT: PERRL/EOMI, normal ENT inspection, pharynx normal Neck: normal inspection Respiratory: lungs clear, normal breath sounds, no respiratory distress, no accessory muscle use Cardiovascular: regular rate, rhythm, no edema, no murmur Gastrointestinal: normal bowel sounds, soft, tenderness (left lower quadrant) Extremities: normal inspection, no pedal edema Back: normal inspection, no vertebral tenderness Neurologic/Psychiatric: electrical unit rebuilder II-XII nml as tested, no motor/sensory deficits, alert, normal mood/affect, oriented x 3 Skin: normal color, warm/dry (DARBY RAMIREZ MD) Progress/Results/Core Measures Results/Orders Lab Results Laboratory Tests Test 05/09/19 02:50 05/09/19 05:00 Range/Units White Blood Count 7.6 4.3-11.0 10^3/uL Red Blood Count 4.23 L 4.35-5.85 10^6/uL Hemoglobin 14.1 13.3-17.7 G/DL Hematocrit 42 40-54 % Mean Corpuscular Volume 100 H 80-99 FL Mean Corpuscular Hemoglobin 33 25-34 PG Mean Corpuscular Hemoglobin Concent 34 32-36 G/DL Red Cell Distribution Width 13.1 10.0-14.5 % Platelet Count 192 130-400 10^3/uL Mean Platelet Volume 9.5 7.4-10.4 FL Neutrophils (%) (Auto) 53 42-75 % Lymphocytes (%) (Auto) 33 12-44 % Monocytes (%) (Auto) 10 0-12 % Eosinophils (%) (Auto) 2 0-10 % Basophils (%) (Auto) 1 0-10 % Neutrophils # (Auto) 4.0 1.8-7.8 X 10^3 Lymphocytes # (Auto) 2.5 1.0-4.0 X 10^3 Monocytes # (Auto) 0.8 0.0-1.0 X 10^3 Eosinophils # (Auto) 0.2 0.0-0.3 10^3/uL Basophils # (Auto) 0.1 0.0-0.1 10^3/uL Sodium Level 143 135-145 MMOL/L Potassium Level 3.7 3.6-5.0 MMOL/L Chloride Level 107 98-107 MMOL/L Carbon Dioxide Level 24 21-32 MMOL/L Anion Gap 12 5-14 MMOL/L Blood Urea Nitrogen 11 7-18 MG/DL Creatinine 1.02 0.60-1.30 MG/DL Estimat Glomerular Filtration Rate > 60 BUN/Creatinine Ratio 11 Glucose Level 83 70-105 MG/DL Calcium Level 9.0 8.5-10.1 MG/DL Corrected Calcium 8.6 8.5-10.1 MG/DL Magnesium Level 2.0 1.6-2.4 MG/DL Total Bilirubin 0.7 0.1-1.0 MG/DL Aspartate Amino Transf (AST/SGOT) 24 5-34 U/L Alanine Aminotransferase (ALT/SGPT) 32 0-55 U/L Alkaline Phosphatase 108 40-136 U/L Total Protein 7.1 6.4-8.2 GM/DL Albumin 4.5 3.2-4.5 GM/DL Thyroid Stimulating Hormone (TSH) 4.37 0.35-4.94 UIU/ML Free Thyroxine 0.93 0.70-1.48 NG/DL Urine Color YELLOW Urine Clarity CLEAR Urine pH 5 5-9 Urine Specific [place] 1.020 1.016-1.022 Urine Protein 2+ H NEGATIVE Urine Glucose (UA) NEGATIVE NEGATIVE Urine Ketones 1+ H NEGATIVE Urine Nitrite NEGATIVE NEGATIVE Urine Bilirubin NEGATIVE NEGATIVE Urine Urobilinogen NORMAL NORMAL MG/DL Urine Leukocyte Esterase NEGATIVE NEGATIVE Urine RBC (Auto) 4+ H NEGATIVE Urine RBC 50-100 H /HPF Urine WBC NONE /HPF Urine Squamous Epithelial Cells 2-5 /HPF Urine Crystals NONE /LPF Urine Bacteria NEGATIVE /HPF Urine Casts NONE /LPF Urine Mucus NEGATIVE /LPF Urine Culture Indicated NO (APOLONIA LINCOLN MD) My Orders Orders - APOLONIA LINCOLN MD Abdomen/Kub [place] (05/09/19 06:41) (APOLONIA LINCOLN MD) Medications Given in ED Current Medications Medications Dose Ordered Sig/Frank Route Start Time Stop Time Status Last Admin Dose Admin Fentanyl Citrate 25 mcg ONCE ONCE IVP 05/09/19 03:00 05/09/19 03:01 DC 05/09/19 03:07 25 MCG Fentanyl Citrate 50 mcg ONCE ONCE IVP 05/09/19 04:00 05/09/19 04:01 DC 05/09/19 03:55 50 MCG Ketorolac Tromethamine 15 mg ONCE ONCE IVP 05/09/19 06:15 05/09/19 06:16 DC 05/09/19 06:19 15 MG Lactated Ringer's 1,000 ml @ 0 mls/hr Q0M ONCE IV 05/09/19 05:12 05/09/19 05:14 DC 05/09/19 05:19 1,000 MLS/HR Ondansetron HCl 4 mg ONCE ONCE IVP 05/09/19 03:00 05/09/19 03:01 DC 05/09/19 03:07 4 MG Promethazine HCl 12.5 mg ONCE ONCE IVP 05/09/19 04:30 05/09/19 04:31 DC 05/09/19 04:37 12.5 MG Promethazine HCl 12.5 mg ONCE ONCE IVP 05/09/19 05:45 05/09/19 05:46 DC 05/09/19 05:40 12.5 MG Sodium Chloride 1,000 ml @ 0 mls/hr Q0M ONCE IV 05/09/19 03:29 05/09/19 03:31 DC 05/09/19 03:39 1,000 MLS/HR (APOLONIA LINCOLN MD) Vital Signs/I&O 05/09/19 02:44 Temp 96.9 Pulse 40 Resp 18 B/P (MAP) 160/82 (108) Pulse Ox 99 (APOLONIA LINCOLN MD) Blood Pressure Mean: 108 Progress Progress Note #1: Time: 05:10 Progress Note UA is pending. Patient cannot urinate until after completing 1 L of IV fluid. Patient has received multiple doses of narcotic pain medication. The initial Toradol dose did not improve his pain. He received Zofran but still had a small amount of vomiting. Refractory nausea and vomiting is being treated with Phenergan. Once UA results return, a decision on imaging modality will be made. Progress Note #2: Time: 05:34 Progress Note Patient's pain is better controlled now after multiple doses of opioids. However, he is still dry heaving even after Zofran 8 mg and Phenergan 12.5 mg. We will repeat the Phenergan dose. UA results and with a significant amount of hematuria. CT stone search study has been ordered. (DARBY RAMIREZ MD) Progress Note : Time: 07:00 Progress Note Seen and evaluated the patient. Overall he is doing much better. CT results note 7 mm stone at the level of L4 in the mid ureter. Does have some perinephric stranding/edema. I did discuss the case with Dr. Garner. He would like to see him in office. Unfortunately the ultrasound truck was here yesterday. We will prescribe pain control to get him until next Tuesday or Tuesday and Dr. Garner will follow with the anticipation of setting up for ultrasound destruction of stone or other procedures as indicated. This was discussed with the patient and family. Discharged home with return precautions. Patient and family verbalize understanding instructions and agreement with plan. KUB ordered and reviewed by me and does show stone in position similar to CT (APOLONIA LINCOLN MD) Diagnostic Imaging Diagonstic Imaging: CT Plain Films/CT/US/NM/MRI: abdomen, pelvis Comments [facility], [place] NAME: RAHUL BRODY [facility] REC#: [id number] PT STATUS: REG ER : 1945 PHYSICIAN: DARBY RAMIREZ MD ADMIT DATE: 05/09/19/ER Draft Date of Exam:05/09/19 CT ABD/PELVIS WO(KIDNEY STONE) PROCEDURE: CT urinary tract, rule out kidney stone. TECHNIQUE: Multiple contiguous axial images were obtained through the abdomen and pelvis without the use of intravenous contrast. Auto Exposure Controls were utilized during the CT exam to meet ALARA standards for radiation dose reduction. INDICATION: Abdominal pain. Comparison with 01/25/2019. FINDINGS: There is moderate hydronephrosis with perinephric fluid. There is a 7 mm obstructing calculus in the mid left ureter at the level of L4. There are at least 3 additional calculi in the left renal calyces. Small calculus right renal calyx. Lung bases are clear. Liver appears normal. Gallbladder and bile ducts are normal. Pancreas and spleen are normal. Adrenal glands are not enlarged. Bowel gas pattern is normal. Aorta shows mild atherosclerotic change. There is a large amount of stool within the rectum. IMPRESSION: 1. Obstructive uropathy due to 7 mm stone mid left ureter at the level of L4. There is perinephric edema. 2. Considerable stool burden throughout the colon with impacted stool in the rectal vault. Dictated on workstation # [id number] Dict: 05/09/19 0629 Trans: 05/09/19 0638 SARA [id number] Interpreted by: JOSE GONZALEZ MD Electronically signed by: Reviewed: Reviewed by Me Diagonstic Imaging: Xray Plain Films/CT/US/NM/MRI: abdomen Comments 7 mm stone left side level of L4 (APOLONIA LINCOLN MD) Departure Impression Primary Impression: Left ureteral stone Disposition: 01 HOME, SELF-CARE Condition: Stable Departure-Patient Inst. Decision time for Depature: 07:06 (APOLONIA LINCOLN MD) Referrals: MIRTA GARNER MD, JOHN D MD (PCP/Family) Primary Care Physician Patient Instructions: Kidney Stones (DC), How to Strain Your Urine Add. Discharge Instructions: All discharge instructions reviewed with patient and/or family. Voiced understanding. Call Dr. Garner's office today for appointment in the next few days. Take medications as directed. Drink plenty of fluids. Return for worse pain, fever, vomiting, weakness, breathing problems or other concerns as needed. Scripts Tamsulosin HCl (Flomax) 0.4 Mg Cap 0.4 MG PO DAILY, #14 CAP 0 Refills Prov: APOLONIA LINCOLN MD 05/09/19 Ondansetron HCl (Ondansetron HCl) 8 Mg Tablet 8 MG PO Q6H PRN for NAUSEA/VOMITING, #10 TAB 0 Refills Prov: APOLONIA LINCOLN MD 05/09/19 Oxycodone HCl/Acetaminophen (Oxycodon-Acetaminophen 7.5-325) 1 Each Tablet 1 EACH PO Q6H PRN for PAIN-MODERATE MDD 4 for 7 Days, #20 TAB 0 Refills Prov: APOLONIA LINCOLN MD 05/09/19 Cephalexin (Cephalexin) 500 Mg Tablet 500 MG PO BID, #14 TAB 0 Refills Prov: APOLONIA LINCOLN MD 05/09/19 Copy Copies To 1: MIRTA GARNER MD Copies To 2: DURGA SALVADOR MD, JOSHUA T MD May 09, 2019 03:33 APOLONIA LINCOLN MD May 09, 2019 07:06
[2019-05-09 03:51] LABS: FREE T4 (FREE THYROXINE) 0.93 NG/DL (0.70-1.48)
[2019-05-09] MEDS ORDERED: morphine INJ 10 MG/ML 1ML (SYR OR VIAL) IVP STA ×2 (04:28→05:01)
[2019-05-09] MEDS ORDERED: PROMETHAZINE INJ 25 MG/ML (PHENERGAN) AMP IVP ONE ×2 (04:30→05:45)
[2019-05-09 05:09] LABS: BILIRUBIN,URINE NEGATIVE (NEGATIVE); CLARITY,URINE CLEAR; COLOR,URINE YELLOW; GLUCOSE, URINE (UA) NEGATIVE (NEGATIVE); KETONES,URINE 1+ (NEGATIVE); LEUKOCYTE ESTERASE ,URINE NEGATIVE (NEGATIVE); NITRITE,URINE NEGATIVE (NEGATIVE); PH,URINE 5 (5-9); PROTEIN,URINE 2+ (NEGATIVE); UROBILINOGEN,URINE NORMAL (NORMAL)
[2019-05-09] MEDS ORDERED: LACTATED RINGERS 1,000 ML IV ONE (05:12)
[2019-05-09 05:19] LABS: BACTERIA,URINE NEGATIVE /HPF; RBC,URINE 50-100 /HPF
[2019-05-09] MEDS ORDERED: KETOROLAC 30 MG/ML VIAL IVP ONE (06:15)
--- NOTE | 2019-05-09 06:38 | Diagnostic Imaging Report ---
PROCEDURE: CT urinary tract, rule out kidney stone. TECHNIQUE: Multiple contiguous axial images were obtained through the abdomen and pelvis without the use of intravenous contrast. Auto Exposure Controls were utilized during the CT exam to meet ALARA standards for radiation dose reduction. INDICATION: Abdominal pain. Comparison with 01/25/2019. FINDINGS: There is moderate hydronephrosis with perinephric fluid. There is a 7 mm obstructing calculus in the mid left ureter at the level of L4. There are at least 3 additional calculi in the left renal calyces. Small calculus right renal calyx. Lung bases are clear. Liver appears normal. Gallbladder and bile ducts are normal. Pancreas and spleen are normal. Adrenal glands are not enlarged. Bowel gas pattern is normal. Aorta shows mild atherosclerotic change. There is a large amount of stool within the rectum. IMPRESSION: 1. Obstructive uropathy due to 7 mm stone mid left ureter at the level of L4. There is perinephric edema. 2. Considerable stool burden throughout the colon with impacted stool in the rectal vault. Dictated by: Dictated on workstation # [id number]
[2019-05-09] MEDS ORDERED: CEPH500T PO (07:11)
[2019-05-09] MEDS ORDERED: OXYC-464 PO (07:11)
[2019-05-09] MEDS ORDERED: ONDA8TAB12 PO (07:11)
[2019-05-09] MEDS ORDERED: TAMS0.4C98 PO (07:11)
[2019-05-09 07:13] VITALS: BP 145/81
--- NOTE | 2019-05-09 07:27 | Diagnostic Imaging Report ---
INDICATION: Followup kidney stone. Kidney stone noted just lateral to the transverse process of L4 on the left measuring approximately 7 mm. This does correlate with the CT finding. There are several calculi overlying the lower pole and upper pole of the left kidney. IMPRESSION: Nephrolithiasis left kidney with calculus mid ureter on the left. Dictated by: Dictated on workstation # [id number]
== END 2019-05-09 07:25 | disposition home or self-care (01) ==
LOC: EDUNIT# 02:42 → ER 02:44
DX: N13.2 Hydronephrosis with renal and ureteral calculous obstruction (principal); N40.0 Benign prostatic hyperplasia without lower urinary tract symptoms; E03.9 Hypothyroidism, unspecified; Z98.84 Bariatric surgery status; Z90.89 Acquired absence of other organs; Z80.59 Family history of malignant neoplasm of other urinary tract organ
CPT/HCPCS: 36415; 74018; 74176; 80053; 81000; 83735; 84439; 84443; 85025; 93005; 93041

== ENCOUNTER 2019-05-11 06:05 | Day surgery (SDC) | payer MEDICARE ==
[2019-05-11] VITALS (12 sets, daily range): BP systolic 151–173; BP diastolic 83–94
[~2019-05-11] VITALS: Ht 188 cm; Wt 84.1 kg
[~2019-05-11 06:05] MED LIST changes: +CEPH500T PO; +MULT1CAP54 PO; +ONDA8TAB12 PO; +OXYC-464 PO
[2019-05-11] MEDS ORDERED: cefTRIAXone FOR IV USE 1,000 MG in WATER (STERILE) FOR INJECTION 10 ML IV ONE (06:15)
[2019-05-11] MEDS ORDERED: ONDANSETRON 4 MG/2 ML (SDV) Z0FRAN ONE (06:41)
[2019-05-11] MEDS ORDERED: proPOfol 200 MG/20 ML (DIPRIVAN) VIAL IV ONE (06:41)
[2019-05-11] MEDS ORDERED: fentaNYL INJECTION 100 MCG/2 ML AMP ONE (06:41)
[2019-05-11] MEDS ORDERED: MIDAZOLAM 2 MG/2 ML (VERSED) VIAL ONE (06:41)
[2019-05-11] MEDS ORDERED: SEVOFLURANE (ULTANE) 15 ML INHAL SOLN ONE ×2 (06:41→07:42)
[2019-05-11] MEDS ORDERED: LIDOCAINE PF 2% 5 ML (XYLOCAINE) VIAL ONE (06:41)
[2019-05-11] MEDS ORDERED: DEXAMETHASONE 10 MG/ML (DECADRON) 1 ML VIAL ONE (06:41)
[2019-05-11] MEDS ORDERED: CATHETER FLUSH 10 ML SYR IV PRN (06:45)
[2019-05-11] MEDS ORDERED: FUROSEMIDE 40 MG/4 ML INJ (LASIX) ONE (06:50)
[2019-05-11] MEDS ORDERED: KETOROLAC 30 MG/ML VIAL ONE (06:50)
[2019-05-11] MEDS ORDERED: LACTATED RINGERS 1,000 ML IV PRN (06:51)
--- NOTE | 2019-05-11 06:53 | Progress Note-Pre Operative ---
Pre-Operative Progress Note H&P Reviewed The H&P was reviewed, patient examined and no changes noted. Date Seen by Provider: May 11, 2019 Time Seen by Provider: 06:52 Date H&P Reviewed: May 11, 2019 Time H&P Reviewed: 06:52 Pre-Operative Diagnosis: LT URETERAL AND RENAL STONES MIRTA GARNER MD May 11, 2019 06:53
--- NOTE | 2019-05-11 06:54 | Progress Note-Post Operative ---
Post-Operative Progess Note Surgeon (s)/Computer Game Designer (s) Surgeon MIRTA GARNER MD Computer Game Designer: NONE Pre-Operative Diagnosis LT URETERAL AND RENAL STONES Post-Operative Diagnosis SAME Procedure & Operative Findings Date of Procedure 05/11/19 Procedure Performed/Findings LT URETEROSCOPY, LT RETROGRADE UROGRAM, URETERAL STONE MANIPULATION AND INSERTION OF STENT Anesthesia Type GENERAL Estimated Blood Loss Estimated blood loss (mL): NONE Specimens/Packing Specimens Removed NONE Packing: NONE MIRTA GARNER MD May 11, 2019 06:54
--- NOTE | 2019-05-11 06:56 | Discharge Inst-Urology ---
Discharge Inst-Urology Reconcile Patient Problems Problems Reviewed?: Yes Patient Instructions/Follow Up Plan/Assessment/Instructions Please make appointment to been seen in office Monday 05/28, KUB prior to it. KUB on way home Increase oral fluids for 48 hours and then as needed. Diet and Activity as tolerated. If questions or concerns contact your physician Or seek help at emergency department. MIRTA GARNER MD May 11, 2019 06:56
--- NOTE | 2019-05-11 07:16 | Diagnostic Imaging Report ---
INDICATION: Preoperative left ureteral stone. COMPARISON STUDY: KUB from 2 days ago. FINDINGS: Supine view of the abdomen demonstrates a calculi overlying the left L4 transverse process. This has not changed in position since previous exam and is probably within the ureter. IMPRESSION: Stable calculi in the region of the mid left ureter. Dictated by: Dictated on workstation # [id number]
[2019-05-11] MEDS ORDERED: ROCURONIUM 10 MG/ML 5 ML SYRINGE IV ONE (07:19)
[2019-05-11] MEDS ORDERED: morphine INJ 10 MG/ML 1ML (SYR OR VIAL) IVP ONE (08:30)
[2019-05-11] MEDS ORDERED: ONDANSETRON 4 MG/2 ML (SDV) Z0FRAN IVP PRN (08:30)
--- NOTE | 2019-05-11 09:24 | Anesthesia-General Post-Op ---
General Patient Condition Mental Status/LOC: Same as Preop Cardiovascular: Satisfactory Nausea/Vomiting: Absent Respiratory: Satisfactory Pain: Controlled Complications: Absent Post Op Complications Complications None Follow Up Care/Instructions Patient Instructions None needed. Anesthesia/Patient Condition Patient Condition Patient is doing well, no complaints, stable vital signs, no apparent adverse anesthesia problems. No complications reported per nursing. CLAYTON QUEZADA CRNA May 11, 2019 09:24
[2019-05-11] MEDS ORDERED: TAMS0.4C98 PO (09:36)
--- NOTE | 2019-05-11 13:07 | Diagnostic Imaging Report ---
INDICATION: Nephrolithiasis, stent placement. TECHNIQUE: Single supine view of the abdomen 10:09 AM CORRELATION STUDY: 05/11/2019 FINDINGS: Since study performed earlier in the day, there has been placement of a left ureteral stent. The previously noted calcification over the L4 transverse process tip is not visualized. There are few fragmented calcifications superimposed over the stent just below the SI joint on the left. Multiple calcific densities do project over the left renal silhouette. A few calcifications demonstrated within the pelvis, moderate amount of overlying bowel gas and stool present. Surgical suture line over the left upper quadrant. IMPRESSION: 1. Interval placement of left ureteral stent. The previously noted calcifications over the left L4 transverse process not visualized. May be a few fragmented stones projecting over the aspect of the stent. Additional stone superimposed over the left kidney. Dictated by: Dictated on workstation # [id number]
--- NOTE | 2019-05-11 14:54 | OPERATIVE REPORT ---
DATE OF SERVICE: 05/11/2019 PREOPERATIVE DIAGNOSIS: Left proximal ureteral and left renal stones. POSTOPERATIVE DIAGNOSIS: Left proximal ureteral and left renal stones. OPERATIONS PERFORMED: Left ureteroscopy, retrograde urogram, stone manipulation and insertion of left stent. SURGEON: Manas Garner MD ANESTHESIA: General. COMPLICATIONS: None. DESCRIPTION OF PROCEDURE: Under satisfactory general anesthesia, the patient in lithotomy position, genitalia were prepped and draped in the usual sterile fashion. Cystoscope was introduced under vision. The anterior urethra was normal. The prostate revealed enlargement of the lateral lobe and median lobe projection into the bladder. Bladder revealed trabeculation. Ureteric orifices displaced upward laterally with clear effluxes sluggish on the left side. Using the foroblique lens, I dilated the left ureteral orifice intramural portion to accommodate a 6.9-Malawian semi-rigid ureteroscope. I was able to go very close to the stone-guided fluoroscopically, but I could not manipulate it into the stones were I injected contrast and explanation was right there. There was an L-shaped curve of the ureter just distal to the stone that I could not manipulate with the semirigid ureteroscope, so I removed the ureteroscope, reinserted the cystoscope, passed a 6-Malawian 28 cm double-J stent, guided fluoroscopically. I was able to manipulate the curve, guided fluoroscopically and with the contrast in, I was able to bypass the stone all the way up to the left kidney. I removed the guidewire and the stent was seen draining nicely proximally and distally fluoroscopically and distally endoscopically. There was no extravasation of contrast. I emptied the bladder, removed the cystoscope. The patient tolerated the procedure and anesthesia well and was sent to recovery room in stable condition. PLAN: ESWL on when the machine is the plan was previously explained to the patient. Postoperative instructions given to the . Job ID: [id number] DocumentID: [id number] Dictated Date: 05/11/2019 08:19:03 English Language Learner Tutor Date: 05/11/2019 14:53:33 Dictated By: MANAS GARNER MD
== END 2019-05-11 10:30 | disposition home or self-care (01) ==
LOC: SDC 06:05
PROVIDERS: ATTEND Urology
DX: N20.1 Calculus of ureter (principal); N20.0 Calculus of kidney; Z11.2 Encounter for screening for other bacterial diseases; E11.9 Type 2 diabetes mellitus without complications; E66.9 Obesity, unspecified; N40.0 Benign prostatic hyperplasia without lower urinary tract symptoms; Z79.899 Other long term (current) drug therapy; Z68.23 Body mass index [BMI] 23.0-23.9, adult
CPT/HCPCS: 74018; 87081

== ENCOUNTER 2019-05-28 06:29 | Outpatient (CLI) | payer MEDICARE ==
[~2019-05-28] VITALS: Ht 187.9 cm; Wt 83.9 kg
[~2019-05-28 06:29] MED LIST changes: -HYDR-3870 PO; -NITR-65 PO
[2019-05-29] MEDS ORDERED: NITR-65 PO (09:14)
[2019-05-29] MEDS ORDERED: HYDR-3870 PO (09:14)
== END 2019-05-28 14:33 | disposition home or self-care (01) ==
LOC: PREOP 06:29
PROVIDERS: ATTEND Urology
DX: Z01.818 Encounter for other preprocedural examination (principal)

== ENCOUNTER → 2019-05-28 | Outpatient (CLI) | payer MEDICARE ==
[~2019-05-28] MED LIST changes: +HYDR-3870 PO; +NITR-65 PO
--- NOTE | 2019-05-28 15:29 | Diagnostic Imaging Report ---
INDICATION: Follow-up left ureteral stent and stone. TIME OF EXAM: 01:23 p.m. Correlation is made with prior radiograph from 05/11/2019. FINDINGS: Double-J nephroureteral stent remains in place. There is now a calculus adjacent to the stent at the level of L3. There are several calcific densities overlying the lower pole of the left kidney. No other calculi along the course of the stent are identified. IMPRESSION: There is a calculus adjacent to the [id number] aspect of the left ureteral stent at the level of L3, as described. Dictated by: Dictated on workstation # [id number]
== END ==
LOC: LAB 13:07
PROVIDERS: ATTEND Urology
DX: N20.2 Calculus of kidney with calculus of ureter (principal); Z96.0 Presence of urogenital implants
CPT/HCPCS: 74018

== ENCOUNTER 2019-05-29 06:04 | Day surgery (SDC) | payer MEDICARE ==
[~2019-05-29] VITALS: Ht 187.9 cm; Wt 83.9 kg
[2019-05-29] VITALS (10 sets, daily range): BP systolic 119–140; BP diastolic 71–80
[2019-05-29] MEDS ORDERED: LACTATED RINGERS 1,000 ML IV PRN (06:14)
[2019-05-29] MEDS ORDERED: cefTRIAXone FOR IV USE 1,000 MG in WATER (STERILE) FOR INJECTION 10 ML IV ONE (06:15)
[2019-05-29] MEDS ORDERED: DEXAMETHASONE 10 MG/ML (DECADRON) 1 ML VIAL ONE (06:39)
[2019-05-29] MEDS ORDERED: ONDANSETRON 4 MG/2 ML (SDV) Z0FRAN ONE (06:39)
[2019-05-29] MEDS ORDERED: proPOfol 200 MG/20 ML (DIPRIVAN) VIAL IV ONE (06:39)
[2019-05-29] MEDS ORDERED: LIDOCAINE PF 2% 5 ML (XYLOCAINE) VIAL ONE (06:39)
[2019-05-29] MEDS ORDERED: fentaNYL INJECTION 100 MCG/2 ML AMP ONE (06:40)
[2019-05-29] MEDS ORDERED: MIDAZOLAM 2 MG/2 ML (VERSED) VIAL ONE (06:40)
[2019-05-29] MEDS ORDERED: cefTRIAXone 1,000 MG IV (ROCEPHIN) VIAL ONE (06:43)
--- NOTE | 2019-05-29 06:51 | Diagnostic Imaging Report ---
INDICATION: Preprocedure lithotripsy assessment. COMPARISON: 05/28/2019 at 1:23 PM. FINDINGS: Left nephroureteral stent has slightly propagated distally compared to prior exam. There remains a 8mm stone along the course of the left nephroureteral stent. Numerous left renal calculi are still present. Probable pelvic phleboliths. Nonobstructive bowel gas pattern. IMPRESSION: 1. Unchanged 8 mm stone in the proximal left ureter along the nephroureteral stent. Dictated by: Dictated on workstation # [id number]
--- NOTE | 2019-05-29 07:05 | Progress Note-Pre Operative ---
Pre-Operative Progress Note H&P Reviewed The H&P was reviewed, patient examined and no changes noted. Date Seen by Provider: May 29, 2019 Time Seen by Provider: 07:04 Date H&P Reviewed: May 29, 2019 Time H&P Reviewed: 07:04 Pre-Operative Diagnosis: LT URETERAL (PROXIMAL) AND LT RENAL STONES MIRTA GARNER MD May 29, 2019 07:05
--- NOTE | 2019-05-29 07:27 | Progress Note-Post Operative ---
Post-Operative Progess Note Surgeon (s)/Cleaner Furniture (s) Surgeon MIRTA GARNER MD Cleaner Furniture: NONE Pre-Operative Diagnosis LT URETERAL (PROXIMAL) AND LT RENAL STONES Post-Operative Diagnosis SAME Procedure & Operative Findings Date of Procedure 05/29/19 Procedure Performed/Findings LT ESWL AND CYSTOSCOPY WITH REMOVAL OF STENT Anesthesia Type GENERAL Estimated Blood Loss Estimated blood loss (mL): NONE Specimens/Packing Specimens Removed NONE TO PATH Packing: NONE MIRTA GARNER MD May 29, 2019 07:27
--- NOTE | 2019-05-29 07:42 | Discharge Inst-Urology ---
Discharge Inst-Urology Reconcile Patient Problems Problems Reviewed?: Yes Patient Instructions/Follow Up Plan/Assessment/Instructions Please make appointment to been seen in office next Tuesday, KUB prior to it. KUB on way home Post ESWL instructions Increase oral fluids for 48 hours and then as needed. Diet and Activity as tolerated. If questions or concerns contact your physician Or seek help at emergency department. MIRTA GARNER MD May 29, 2019 07:42
[2019-05-29] MEDS ORDERED: SEVOFLURANE (ULTANE) 15 ML INHAL SOLN ONE (07:48)
[2019-05-29] MEDS ORDERED: ONDANSETRON 4 MG/2 ML (SDV) Z0FRAN IVP PRN (08:15)
[2019-05-29] MEDS ORDERED: HYDROmorphone 2 MG/ML VIAL (DILAUDID) IV ONE (08:15)
--- NOTE | 2019-05-29 08:59 | Anesthesia-General Post-Op ---
General Patient Condition Mental Status/LOC: Same as Preop Cardiovascular: Satisfactory Nausea/Vomiting: Absent Respiratory: Satisfactory Pain: Controlled Complications: Absent Post Op Complications Complications None Follow Up Care/Instructions Patient Instructions None needed. Anesthesia/Patient Condition Patient Condition Patient is doing well, no complaints, stable vital signs, no apparent adverse anesthesia problems. No complications reported per nursing. RICCO ARCHER CRNA May 29, 2019 08:59
[2019-05-29] MEDS ORDERED: NITR-65 PO (09:14)
[2019-05-29] MEDS ORDERED: HYDR-3870 PO (09:14)
[2019-05-29] MEDS ORDERED: FUROSEMIDE 40 MG/4 ML INJ (LASIX) ONE (10:14)
[2019-05-29] MEDS ORDERED: KETOROLAC 30 MG/ML VIAL ONE (10:14)
--- NOTE | 2019-05-29 11:03 | Diagnostic Imaging Report ---
PATIENT HISTORY: POST ESWL. TECHNIQUE: Supine frontal view of the abdomen COMPARISON: Radiographs from the same day FINDINGS: The left ureteral stent has been removed. The previously seen calcification along the left ureter is no longer evident. Phleboliths are again seen at the pelvis and appear stable. Additional left renal calcifications appear stable. No dilated loops of bowel are seen. IMPRESSION: 1. The left ureteral calculus is no longer seen. The left ureteral stent has been removed. 2. Redemonstrated left nephrolithiasis. Multiple phleboliths are again seen in the pelvis. Dictated by: Dictated on workstation # [id number]
--- NOTE | 2019-05-29 12:16 | OPERATIVE REPORT ---
DATE OF SERVICE: 05/29/2019 PREOPERATIVE DIAGNOSES: Left proximal ureteral and renal stones. POSTOPERATIVE DIAGNOSES: Left proximal ureteral and renal stones. OPERATION PERFORMED: Left ESWL, cystoscopy and removal of stent. SURGEON: Manas Garner MD ANESTHESIA: General. COMPLICATIONS: None. DESCRIPTION OF PROCEDURE: Under satisfactory general anesthesia, the patient in supine position, the left proximal ureteral stone was localized. Shocks were delivered at kV of 6. Total of 3000 shocks fragmented the stone nicely with good layering. The genitalia were prepped and draped in the usual sterile fashion. Flexible cystoscope was introduced under vision and the distal end of the left stent was grasped with grasping forceps and removed completely. The patient received 40 mg of Lasix and 30 mg of Toradol IV at the end of the procedure. He tolerated the procedure and anesthesia well and was sent to recovery room in stable condition. PLAN: We will see him back on Tuesday at the office if the stone in the ureter has been fragmented nicely. We will do ESWL on the left kidney stone. If he wishes, so it was still needs another ESWL for the ureteral stone would proceed next Tuesday. Job ID: [id number] DocumentID: [id number] Dictated Date: 05/29/2019 07:53:23 Cheese Grader Date: 05/29/2019 12:15:58 Dictated By: MANAS GARNER MD
== END 2019-05-29 10:05 | disposition home or self-care (01) ==
LOC: SDC 06:04
PROVIDERS: ATTEND Urology
DX: N20.2 Calculus of kidney with calculus of ureter (principal); Z46.6 Encounter for fitting and adjustment of urinary device; E75.5 Other lipid storage disorders; E03.9 Hypothyroidism, unspecified; Z79.891 Long term (current) use of opiate analgesic; Z79.899 Other long term (current) drug therapy
CPT/HCPCS: 74018; 87081

== ENCOUNTER → 2019-06-01 | Outpatient (CLI) | payer MEDICARE ==
[~2019-06-01] MED LIST changes: +HYDR-3870 PO; +NITR-65 PO
== END | disposition home or self-care (01) ==
LOC: PREOP 09:04
PROVIDERS: ATTEND Urology
DX: Z01.818 Encounter for other preprocedural examination (principal)

== ENCOUNTER → 2019-06-04 | Outpatient (CLI) | payer MEDICARE ==
--- NOTE | 2019-06-04 17:21 | Diagnostic Imaging Report ---
INDICATION: Nephrolithiasis FINDINGS: There is a 6 mm calculus projecting over the lower pole of the left kidney with 2 small adjacent fragments. Bowel gas pattern is normal. IMPRESSION: Left nephrolithiasis Dictated by: Dictated on workstation # [id number]
== END ==
LOC: RAD 14:48
PROVIDERS: ATTEND Urology
DX: N20.0 Calculus of kidney (principal)
CPT/HCPCS: 74018

== ENCOUNTER 2019-06-05 06:52 | Day surgery (SDC) | payer MEDICARE ==
[~2019-06-05] VITALS: Ht 188 cm; Wt 83.9 kg
[2019-06-05] VITALS (9 sets, daily range): BP systolic 122–164; BP diastolic 70–94
[2019-06-05] MEDS ORDERED: LACTATED RINGERS 1,000 ML IV PRN (07:13)
[2019-06-05] MEDS ORDERED: cefTRIAXone FOR IV USE 1,000 MG in WATER (STERILE) FOR INJECTION 10 ML IV ONE (07:15)
--- NOTE | 2019-06-05 07:15 | Progress Note-Pre Operative ---
Pre-Operative Progress Note H&P Reviewed The H&P was reviewed, patient examined and no changes noted. Date Seen by Provider: Jun 05, 2019 Time Seen by Provider: 07:15 Date H&P Reviewed: Jun 05, 2019 Time H&P Reviewed: 07:15 Pre-Operative Diagnosis: LT RENAL STONE MIRTA GARNER MD Jun 05, 2019 07:15
--- NOTE | 2019-06-05 07:57 | Diagnostic Imaging Report ---
INDICATION: Renal calculus. Exam compared with study one day prior. FINDINGS: Substantial gas within bowel in the left upper quadrant severely limits evaluation of the left kidney at its previously noted stones. Pelvic calcifications are in unchanged alignment. Surgical curvilinear opacity in the left upper quadrant redemonstrated. IMPRESSION: Gas distention of left upper quadrant bowel loops limits evaluation of the left kidney and pelvis for stone disease, pelvic calcifications unchanged. Dictated by: Dictated on workstation # [id number]
[2019-06-05] MEDS ORDERED: DEXAMETHASONE 10 MG/ML (DECADRON) 1 ML VIAL ONE (08:42)
[2019-06-05] MEDS ORDERED: fentaNYL INJECTION 100 MCG/2 ML AMP ONE (08:42)
[2019-06-05] MEDS ORDERED: LIDOCAINE PF 2% 5 ML (XYLOCAINE) VIAL ONE (08:42)
[2019-06-05] MEDS ORDERED: proPOfol 200 MG/20 ML (DIPRIVAN) VIAL IV ONE (08:42)
[2019-06-05] MEDS ORDERED: MIDAZOLAM 2 MG/2 ML (VERSED) VIAL ONE (08:42)
[2019-06-05] MEDS ORDERED: SEVOFLURANE (ULTANE) 15 ML INHAL SOLN ONE (08:42)
[2019-06-05] MEDS ORDERED: ONDANSETRON 4 MG/2 ML (SDV) Z0FRAN ONE (08:42)
[2019-06-05] MEDS ORDERED: KETOROLAC 30 MG/ML VIAL ONE (08:46)
[2019-06-05] MEDS ORDERED: FUROSEMIDE 40 MG/4 ML INJ (LASIX) ONE (08:46)
--- NOTE | 2019-06-05 09:04 | Discharge Inst-Urology ---
Discharge Inst-Urology Reconcile Patient Problems Problems Reviewed?: Yes Patient Instructions/Follow Up Plan/Assessment/Instructions Please make appointment to been seen in office in 2 weeks. KUB prior to it KUB on way home Post ESWL instructions Increase oral fluids for 48 hours and then as needed. Diet and Activity as tolerated. If questions or concerns contact your physician Or seek help at emergency department. MIRTA GARNER MD Jun 05, 2019 09:04
--- NOTE | 2019-06-05 09:05 | Progress Note-Post Operative ---
Post-Operative Progess Note Surgeon (s)/Manufacturing Quality Technician (s) Surgeon MIRTA GARNER MD Manufacturing Quality Technician: NONE Pre-Operative Diagnosis LT RENAL STONE Post-Operative Diagnosis SAME Procedure & Operative Findings Date of Procedure 06/05/19 Procedure Performed/Findings LT ESWL Anesthesia Type GENERAL Estimated Blood Loss Estimated blood loss (mL): NONE Specimens/Packing Specimens Removed NONE Packing: NONE MIRTA GARNER MD Jun 05, 2019 09:05
--- NOTE | 2019-06-05 09:43 | OPERATIVE REPORT ---
DATE OF SERVICE: 06/05/2019 PREOPERATIVE DIAGNOSIS: Left renal stone. POSTOPERATIVE DIAGNOSIS: Left renal stone. OPERATION PERFORMED: Left ESWL. SURGEON: Manas Garner MD ANESTHESIA: General. COMPLICATIONS: None. PROCEDURE IN DETAIL: Under satisfactory general anesthesia, the patient in supine position on the ESWL table, the left renal stone was localized. Shocks were delivered at a kV of 6. A total of 3000 shocks completely fragmented the stone with good layering. The patient received 40 mg of Lasix, 30 mg of Toradol IV at the end of the procedure. He tolerated the procedure and anesthesia well and was sent to recovery room in stable condition. Job ID: [id number] DocumentID: [id number] Dictated Date: 06/05/2019 09:30:12 Family Independence Case Manager Date: 06/05/2019 09:43:34 Dictated By: MANAS GARNER MD
[2019-06-05] MEDS ORDERED: NITR-65 PO (10:53)
[2019-06-05] MEDS ORDERED: TAMS0.4C98 PO (10:53)
--- NOTE | 2019-06-05 11:58 | Diagnostic Imaging Report ---
INDICATION: Post ESWL Compared with study earlier this same date. Distribution of pelvic calcifications unchanged. Stone fragments are now appreciable projecting over the left kidney. The largest measures 4 mm. These were likely previously obscured by overlying bowel content. IMPRESSION: Maximal diameter 4 mm stone fragments project over the left kidney, pelvic calcifications unchanged. Dictated by: Dictated on workstation # [id number]
--- NOTE | 2019-06-05 13:42 | Anesthesia-General Post-Op ---
General Patient Condition Mental Status/LOC: Same as Preop Cardiovascular: Satisfactory Nausea/Vomiting: Absent Respiratory: Satisfactory Pain: Controlled Complications: Absent Post Op Complications Complications None Follow Up Care/Instructions Patient Instructions None needed. Anesthesia/Patient Condition Patient Condition Patient is doing well, no complaints, stable vital signs, no apparent adverse anesthesia problems. No complications reported per nursing. NIESHA PRICE CRNA Jun 05, 2019 13:42
== END 2019-06-05 11:40 | disposition home or self-care (01) ==
LOC: SDC 06:52
PROVIDERS: ATTEND Urology
DX: N20.0 Calculus of kidney (principal); E78.5 Hyperlipidemia, unspecified; E03.9 Hypothyroidism, unspecified; Z79.891 Long term (current) use of opiate analgesic
CPT/HCPCS: 74018; 87081

== ENCOUNTER → 2019-06-19 | Outpatient (CLI) | payer MEDICARE ==
--- NOTE | 2019-06-19 12:05 | Diagnostic Imaging Report ---
EXAMINATION: Supine abdomen at 0826 hours. INDICATION: Nephrolithiasis post ESWL. FINDINGS: The prior exam of 06/05/2019 noted a 4.25 mm calculus overlying the midportion of the left kidney. There were a few other calcific fragments in this area as well. Several phleboliths were also seen low in the pelvis. On this exam, the calcifications overlying the left kidney seen previously do not appear to have changed significantly in position. By my measurements, the largest calcification measures 5.7 mm. There is a small 5.3 mm oval calcification in the right upper quadrant. This does not appear to be related to the right kidney and could be secondary to ingested medication as it was not present on the prior exam. The overall appearance of the abdomen is otherwise stable. No new abnormality has developed. IMPRESSION: The calcifications overlying the left kidney and the calcifications in the pelvis seen on the prior study appear stable. No new abnormality has developed otherwise. Dictated by: Dictated on workstation # [id number]
== END ==
LOC: RAD 08:11
PROVIDERS: ATTEND Urology
DX: N28.89 Other specified disorders of kidney and ureter (principal); N20.0 Calculus of kidney
CPT/HCPCS: 74018

== ENCOUNTER → 2019-11-19 | Outpatient (CLI) | payer MEDICARE ==
[~2019-11-19] VITALS: Ht 185 cm; Wt 84.0 kg
[~2019-11-19] MED LIST changes: +CATHETER FLUSH 10 ML SYR IV PRN; -ONDA8TAB12 PO; +ONDA8TAB15 PO; -TAMS0.4C98 PO; +TMSL.4C PO
[2019-11-19 09:45] VITALS: BP 134/72
--- NOTE | 2019-11-19 14:58 | STRESS TEST ---
DATE OF SERVICE: EXERCISE MYOVIEW STRESS TEST REPORT REFERRING PHYSICIAN: Dr. Tyrone Gross. Baseline heart rate is 52. Baseline blood pressure 135/75. Baseline EKG is sinus rhythm with no ischemic changes. In summary, the patient was injected with 10.87 mCi of technetium-99 Myoview and the resting images were obtained. Then, the patient started exercising with a baseline heart rate, blood pressure and EKG mentioned above. The patient was able to exercise for 6 minutes 45 seconds on a standard Anthony protocol. With peak exercise level, EKG was showing minimal nondiagnostic changes. Blood pressure was 155/79. During recovery, heart rate and blood pressure returned to baseline. EKG returned to baseline. The resting and stress images were reviewed and compared in the short axis, horizontal long axis, and vertical long axis views. Review of the images showed good radiotracer uptake with no significant ischemia or infarction. SSS is 1, SDS 1. TID value 0.97. On the gated images, the left ventricle appeared to be normal size with normal contractility. Calculated ejection fraction is 62%. CONCLUSION: 1. Good exercise tolerance for 6 minutes 45 seconds on a standard Anthony protocol, total of 7.1 METS achieving 81% of maximum expected heart rate. 2. Appropriate heart rate and blood pressure response to exercise returned to baseline during recovery. 3. Nondiagnostic EKG changes with exercise returned to baseline during recovery. 4. No ischemia or infarction on SPECT images. 5. Normal left ventricular size with normal contractility. Calculated ejection fraction is 62%. Job ID: [id number] DocumentID: [id number] Dictated Date: 11/19/2019 12:42:08 Environmental Inspector Date: 11/19/2019 14:57:13 Dictated By: PAWEL MICHELLE MD
== END ==
LOC: CARD 07:57
PROVIDERS: ATTEND Internal Medicine Cardiovascular Disease
DX: E78.2 Mixed hyperlipidemia (principal); I10 Essential (primary) hypertension; I08.1 Rheumatic disorders of both mitral and tricuspid valves; E11.9 Type 2 diabetes mellitus without complications
CPT/HCPCS: 78452; 93017

== ENCOUNTER → 2019-11-20 | Outpatient (CLI) | payer MEDICARE ==
[~2019-11-20] MED LIST changes: -CATHETER FLUSH 10 ML SYR IV PRN
== END ==
LOC: CARD 08:22
PROVIDERS: ATTEND Internal Medicine Cardiovascular Disease
DX: I08.3 Combined rheumatic disorders of mitral, aortic and tricuspid valves (principal); I10 Essential (primary) hypertension; E11.9 Type 2 diabetes mellitus without complications; E78.2 Mixed hyperlipidemia

== ENCOUNTER 2021-07-09 05:20 | Inpatient (IN) | payer MEDICARE ==
[~2021-07-09] VITALS: Ht 185.4 cm; Wt 81.6 kg
[~2021-07-09 05:20] MED LIST changes: -OXYC-464 PO; +OXYC1TAB15 PO
[2021-07-09] MEDS ORDERED: NS IV 1000 ML 1,000 ML IV SCH (05:45)
[2021-07-09] MEDS ORDERED: cefTRIAXone 1,000 MG in WATER (STERILE) FOR INJECTION 10 ML IV ONE (05:45)
--- NOTE | 2021-07-09 05:46 | ED GU-Female ---
General Chief Complaint: - Reproductive Stated Complaint: FEVER,BACK PAIN Source: patient, EMS Exam Limitations: no limitations (LAZARO OJEDA MD) History of Present Illness Date Seen by Provider: Jul 09, 2021 Time Seen by Provider: 05:30 Initial Comments Patient is a 76-year-old male who presents to the emergency department today with a chief complaint of difficulty with urination over the last 2 days and onset of shaking chills this morning about 2 or 3 hours prior to arrival. Patient states that he is been up multiple times throughout the night the last 2 nights with dribbling urine. He states it does burn when he pees. He denies penile pain or scrotal or testicular pain. He states he took 2 tablets this evening of his 's for urine but he cannot recall what exactly they were. He feels feverish. He had a slight bit of nausea when EMS was picking him up this morning otherwise no abdominal pain, vomiting or diarrhea. Normal bowel movements that are nonpainful. No black or bloody stools. No shortness of breath, cough or URI symptoms. Patient does not recall his daily medications. All other review of systems reviewed and negative except as stated. Timing/Duration: other (2 days) Severity/Quality: severe Radiation: none Activities at Onset: none Associated Symptoms: nausea/vomiting (nausea (mild and brief) without vomiting) (LAZARO OJEDA MD) Allergies and Home Medications Allergies Coded Allergies: No Known Drug Allergies (Verified , 05/09/19) Patient Home Medication List Home Medication List Reviewed: Yes (LAZARO OJEDA MD) Home Medication List Reviewed: Yes ([place]) Hydrocodone/Acetaminophen (Lorcet 5-325 mg Tablet) 1 Each Tablet, 1-2 EACH PO Q4H PRN for PAIN-MODERATE Prescribed by: NIELS CORTES on 05/29/19 0914 Nitrofurantoin Monohyd/M-Cryst (Macrobid 100 mg Capsule) 100 Mg Capsule, 1 TAB PO BID Prescribed by: NIELS CORTES on 06/05/19 1053 Tamsulosin HCl (Flomax) 0.4 Mg Cap, 0.4 MG PO DAILY Prescribed by: NIELS CORTES on 06/05/19 1053 Review of Systems Review of Systems Constitutional: see HPI EENTM: no symptoms reported Respiratory: no symptoms reported Cardiovascular: no symptoms reported Gastrointestinal: no symptoms reported Genitourinary: burning, frequency, pain Musculoskeletal: no symptoms reported Skin: no symptoms reported Psychiatric/Neurological: Other (shaking/tremors) (LAZARO OJEDA MD) All Other Systemes Reviewed Negative Unless Noted: Yes (LAZARO OEJDA MD) Past Abneoox-Bdzuse-Eodmky Hx Immunizations Up To Date PED Vaccines UTD: Yes (LAZARO OJEDA MD) Seasonal Allergies Seasonal Allergies: No (LAZARO OJEDA MD) Past Medical History Surgeries: Yes (MINI GASTRIC BYPASS, knee scope, ureteroscopy) Abdominal, Orthopedic, Renal, Tonsillectomy Respiratory: No Currently Using CPAP: No Currently Using BIPAP: No Cardiac: No Neurological: No Genitourinary: Yes Benign Prostatic Hyperpl, Kidney Stones Gastrointestinal: No Musculoskeletal: No Endocrine: Yes Hypothyroidsim HEENT: No Cancer: No Psychosocial: No Integumentary: No Blood Disorders: No Adverse Reaction/Blood Tranf: No (LAZARO OJEDA MD) Family Medical History Arthritis 19 MOTHER Dementia GRANDMA Neoplasm 19 FATHER (THROAT CANCER AND MULTILPLE MYELOMA) Parkinson's disease PATERNAL GRANDFATHER No Pertinent Family Hx (LAZARO OJEDA MD) Physical Exam Vital Signs Vital Signs - First Documented 07/09/21 05:27 Temp 37.1 Pulse 84 Resp 18 B/P (MAP) 159/70 (99) Pulse Ox 95 O2 Delivery Room Air ([place]) Vital Signs Capillary Refill : (LAZARO OJEDA MD) Height, Weight, BMI Height: 6'2.00" Weight: 185lbs. 6.0oz. 84.292291zu; 24.54 BMI Method:Stated General Appearance: WD/WN, no apparent distress HEENT: PERRL/EOMI, normal ENT inspection Neck: normal inspection Cardiovascular: regular rate, rhythm Respiratory: lungs clear, normal breath sounds, no respiratory distress, no accessory muscle use Gastrointestinal: normal bowel sounds, non tender, soft Extremities: non-tender, normal inspection, no pedal edema Neurologic/Psychiatric: no motor/sensory deficits, alert, normal mood/affect, oriented x 3 Skin: normal color, warm/dry (LAZARO OJEDA MD) Focused Exam Lactate Level 07/09/21 05:31: Lactic Acid Level 1.86 ([place]) Lactic Acid Level ([place]) Progress/Results/Core Measures Suspected Sepsis SIRS Temperature: Pulse: Respiratory Rate: Blood Pressure / Mean: (LAZARO OJEDA MD) Results/Orders Lab Results Laboratory Tests Test 07/09/21 05:31 07/09/21 05:40 Range/Units White Blood Count 2.5 L 4.3-11.0 10^3/uL Red Blood Count 3.92 L 4.30-5.52 10^6/uL Hemoglobin 13.2 L 13.3-17.7 g/dL Hematocrit 39 L 40-54 % Mean Corpuscular Volume 100 H 80-99 fL Mean Corpuscular Hemoglobin 34 25-34 pg Mean Corpuscular Hemoglobin Concent 34 32-36 g/dL Red Cell Distribution Width 12.4 10.0-14.5 % Platelet Count 121 L 130-400 10^3/uL Mean Platelet Volume 9.5 9.0-12.2 fL Immature Granulocyte % (Auto) 1 % Neutrophils (%) (Auto) 78 H 42-75 % Lymphocytes (%) (Auto) 16 12-44 % Monocytes (%) (Auto) 1 0-12 % Eosinophils (%) (Auto) 3 0-10 % Basophils (%) (Auto) 1 0-10 % Neutrophils # (Auto) 2.0 1.8-7.8 10^3/uL Lymphocytes # (Auto) 0.4 L 1.0-4.0 10^3/uL Monocytes # (Auto) 0.0 0.0-1.0 10^3/uL Eosinophils # (Auto) 0.1 0.0-0.3 10^3/uL Basophils # (Auto) 0.0 0.0-0.1 10^3/uL Immature Granulocyte # (Auto) 0.0 0.0-0.1 10^3/uL Prothrombin Time 15.9 H 12.2-14.7 SEC INR Comment 1.2 0.8-1.4 Activated Partial Thromboplast Time 34 24-35 SEC Sodium Level 137 135-145 MMOL/L Potassium Level 3.4 L 3.6-5.0 MMOL/L Chloride Level 105 98-107 MMOL/L Carbon Dioxide Level 20 L 21-32 MMOL/L Anion Gap 12 5-14 MMOL/L Blood Urea Nitrogen 10 7-18 MG/DL Creatinine 0.84 0.60-1.30 MG/DL Estimat Glomerular Filtration Rate 89 BUN/Creatinine Ratio 12 Glucose Level 139 H 70-105 MG/DL Lactic Acid Level 1.86 0.50-2.00 MMOL/L Calcium Level 8.5 8.5-10.1 MG/DL Corrected Calcium 8.7 8.5-10.1 MG/DL Total Bilirubin 1.4 H 0.1-1.0 MG/DL Aspartate Amino Transf (AST/SGOT) 20 5-34 U/L Alanine Aminotransferase (ALT/SGPT) 26 0-55 U/L Alkaline Phosphatase 82 40-136 U/L Total Protein 6.1 L 6.4-8.2 GM/DL Albumin 3.7 3.2-4.5 GM/DL Urine Color YELLOW Urine Clarity CLOUDY Urine pH 6.5 5-9 Urine Specific Caspian 1.025 H 1.016-1.022 Urine Protein 2+ H NEGATIVE Urine Glucose (UA) NEGATIVE NEGATIVE Urine Ketones NEGATIVE NEGATIVE Urine Nitrite POSITIVE H NEGATIVE Urine Bilirubin NEGATIVE NEGATIVE Urine Urobilinogen 1.0 < = 1.0 MG/DL Urine Leukocyte Esterase 2+ H NEGATIVE Urine RBC (Auto) 3+ H NEGATIVE Urine RBC 50-100 H /HPF Urine WBC 10-25 H /HPF Urine Squamous Epithelial Cells NONE /HPF Urine Crystals NONE /LPF Urine Bacteria FEW H /HPF Urine Casts NONE /LPF Urine Mucus NEGATIVE /LPF Urine Culture Indicated CULTURE PENDING ([place]) My Orders Orders - [place] Chest 1 View, Ap/Pa Only (07/09/21 06:43) ([place]) Medications Given in ED Current Medications Medications Dose Ordered Sig/Frank Route Start Time Stop Time Status Last Admin Dose Admin Ceftriaxone Sodium 1000 mg/ Sterile Water 10 ml @ 200 mls/hr ONCE ONCE IV 07/09/21 05:45 07/09/21 05:47 DC 07/09/21 05:59 200 MLS/HR ([place]) Vital Signs/I&O 07/09/21 07/09/21 07/09/21 07/09/21 05:27 05:49 08:00 08:13 Temp 37.1 37.1 36.4 Pulse 84 84 82 62 Resp 18 18 18 20 B/P (MAP) 159/70 (99) 159/70 106/56 (73) 125/68 Pulse Ox 95 95 97 O2 Delivery Room Air Room Air Room Air 07/09/21 08:27 Pulse Ox 97 O2 Delivery Room Air ([place]) Vital Signs/I&O Capillary Refill : (LAZARO OJEDA MD) Progress Note : Time: 06:30 Progress Note Assumed care of the patient at shift change. I agree with the above documented history and physical exam. Patient does have intentional tremor. He does complain of some shortness of air but has normal vital signs with oxygen saturations in the mid 90s and heart rate in the low 80s. He thought it might be related to wearing the mask so we will let him take his mask down and it seemed to improve. Respiratory rate is in the low 20s. Patient has hematuria. We will offer him CT. He meets sepsis criteria and has received Rocephin. He has received 2 L of fluids total which is more than 20 mL/kg. We will also offer him an admission. The patient did accept admission. He declined however a CT at this time stating he is not having any new back pain. He has had 4 kidney stones in the past and had lithotripsy twice [address] Mahajan. He does not follow with urologist routinely. He does however complain of frequent urination of small amounts about 2 to 3 ounces at a time throughout the night. We will start him on some Flomax encourage him to follow-up with urologist ([place]) Diagnostic Imaging Diagonstic Imaging: Xray Plain Films/CT/US/NM/MRI: chest Comments No acute cardiopulmonary process on 1 view chest x-ray. [facility]. [place], [place] NAME: RAHUL BRODY II MED REC#: [id number] PT STATUS: ADM IN : 1945 PHYSICIAN: [place] MD ADMIT DATE: 07/09/21/ Draft Date of Exam:07/09/21 CHEST 1 VIEW, AP/PA ONLY Indication: Sepsis AP view of the chest is obtained with comparison made to study of 11/26/2007 FINDINGS: Heart size and pulmonary vascularity are within normal limits, and the lungs are clear, bilaterally. IMPRESSION: Unremarkable chest. Dictated on workstation # [id number] Dict: 07/09/21 0748 Trans: 07/09/21 0750 [facility] [id number] Interpreted by: DENIZ WILHELM MD Electronically signed by: Reviewed: Reviewed by Me ([place]) Departure Communication (Admissions) Time/Spoke to Admitting Phy: 07:15 Discussed the case with Dr. Arechiga and he agrees to admit the patient for urosepsis to the floor. Nathalia. ([place]) Impression Primary Impression: Urinary tract infection Qualified Codes: N30.01 - Acute cystitis with hematuria Additional Impression: Sepsis Qualified Codes: A41.9 - Sepsis, unspecified organism Disposition: 01 HOME, SELF-CARE Condition: Stable Admissions Decision to Admit Reason: Admit from ER (General) Decision to Admit/Date: Jul 09, 2021 Time/Decision to Admit Time: 06:57 ([place]) Departure-Patient Inst. Referrals: DURGA SALVADOR MD (PCP/Family) Primary Care Physician LAZARO OJEDA MD Jul 09, 2021 05:46 [place] Jul 09, 2021 06:42
[2021-07-09 05:57] LABS: BASOPHILS % (AUTO) 1 % (0-10); EOSINOPHILS # (AUTO) 0.1 10^3/uL (0.0-0.3); EOSINOPHILS % (AUTO) 3 % (0-10); HEMATOCRIT 39 % (40-54); HEMOGLOBIN 13.2 g/dL (13.3-17.7); LYMPHOCYTES # (AUTO) 0.4 10^3/uL (1.0-4.0); LYMPHOCYTES % (AUTO) 16 % (12-44); MEAN CORPUSCULAR HEMOGLOBIN 34 pg (25-34); MEAN CORPUSCULAR HGB CONC 34 g/dL (32-36); MEAN CORPUSCULAR VOLUME 100 fL (80-99); MEAN PLATELET VOLUME 9.5 fL (9.0-12.2); MONOCYTES % (AUTO) 1 % (0-12); NEUTROPHILS % (AUTO) 78 % (42-75); PLATELET COUNT 121 10^3/uL (130-400); WHITE BLOOD COUNT 2.5 10^3/uL (4.3-11.0)
[2021-07-09 06:06] LABS: ALBUMIN 3.7 GM/DL (3.2-4.5); POTASSIUM 3.4 MMOL/L (3.6-5.0)
[2021-07-09 06:07] LABS: CALCIUM 8.5 MG/DL (8.5-10.1)
[2021-07-09 06:08] LABS: TOTAL PROTEIN 6.1 GM/DL (6.4-8.2)
[2021-07-09 06:10] LABS: BILIRUBIN,TOTAL 1.4 MG/DL (0.1-1.0)
[2021-07-09 06:11] LABS: BILIRUBIN,URINE NEGATIVE (NEGATIVE); CLARITY,URINE CLOUDY; COLOR,URINE YELLOW; GLUCOSE, URINE (UA) NEGATIVE (NEGATIVE); KETONES,URINE NEGATIVE (NEGATIVE); LEUKOCYTE ESTERASE ,URINE 2+ (NEGATIVE); NITRITE,URINE POSITIVE (NEGATIVE); PH,URINE 6.5 (5-9); PROTEIN,URINE 2+ (NEGATIVE)
[2021-07-09 06:12] LABS: CREATININE SERUM 0.84 MG/DL (0.60-1.30)
[2021-07-09 06:18] LABS: BACTERIA,URINE FEW /HPF; RBC,URINE 50-100 /HPF
[2021-07-09 06:20] LABS: INR 1.2 (0.8-1.4); PROTHROMBIN TIME PATIENT 15.9 SEC (12.2-14.7)
--- NOTE | 2021-07-09 07:50 | Diagnostic Imaging Report ---
Indication: Sepsis AP view of the chest is obtained with comparison made to study of 11/26/2007 FINDINGS: Heart size and pulmonary vascularity are within normal limits, and the lungs are clear, bilaterally. IMPRESSION: Unremarkable chest. Dictated by: Dictated on workstation # [id number]
[2021-07-09 08:00] VITALS: BP 106/56
[2021-07-09] MEDS ORDERED: ACETAMINOPHEN 500 MG TAB (TYLENOL) PO PRN (09:45)
[2021-07-09] MEDS ORDERED: LACTATED RINGERS 1,000 ML IV SCH (09:45)
[2021-07-09] MEDS ORDERED: ONDANSETRON 4 MG/2 ML (SDV) Z0FRAN IVP PRN (09:45)
[2021-07-09] MEDS ORDERED: IBUPROFEN 600 MG (MOTRIN) TAB PO PRN (10:00)
--- NOTE | 2021-07-09 10:52 | Diagnostic Imaging Report ---
PROCEDURE: CT urinary tract, rule out kidney stone. TECHNIQUE: Multiple contiguous axial images were obtained through the abdomen and pelvis without the use of intravenous contrast. Auto Exposure Controls were utilized during the CT exam to meet ALARA standards for radiation dose reduction. INDICATION: Hematuria. Sepsis. Urinary tract infection. COMPARISON: 05/09/2019. FINDINGS: The heart is unremarkable. The lung bases are clear. Small hiatal hernia is seen. Bilateral nonobstructing renal calculi are seen measuring up to 0.5 cm in the superior pole of the left kidney and 0.2 cm in the inferior pole of the right kidney. No obstructing calculi are visualized. No evidence of hydronephrosis. Nonspecific mild perinephric fat stranding is seen bilaterally. The urinary bladder is nondistended. A bladder calculus is seen in the right aspect of the bladder measuring 0.4 cm. The liver, spleen, pancreas, and adrenal glands have a normal appearance. There is no pathologically enlarged mesenteric or retroperitoneal adenopathy. Postsurgical changes of gastric bypass are visualized in the upper abdomen. The bowel loops are nondilated. Scattered diverticula are seen in the descending and sigmoid colon. There is mild wall thickening of the colon. There is no free fluid or free air. No acute osseous abnormalities. There is calcified aortic and iliac atherosclerotic plaque without aneurysm. There is no free air, loculated collection, or adenopathy in the pelvis. IMPRESSION: 1. No evidence of obstructing calculi or hydronephrosis. Mild nonspecific perinephric fat stranding is present. A bladder calculus is noted measuring 0.4 cm. 2. Bilateral nonobstructing renal calculi. 3. Small hiatal hernia. 4. Mild wall thickening of the colon, which may represent inadequate distention versus colitis. Dictated by: Dictated on workstation # [id number]
--- NOTE | 2021-07-09 11:17 | History & Physical ---
NEL SONG 07/09/21 1117: History of Present Illness History of Present Illness Reason for visit/HPI Pt is a 76yo male with PMH of B/L kidney stones, who presented to the ER this morning with c/o chills/shaking and burning with urination. He first noticed the burning about 2 days ago. This morning he woke up with severe shakes/chills which lead him to seek treatment in ER. He has to wake up about every 30min throughout the night to void. During the day he does not have the urge near as often. He had some nausea this morning but that has improved. Denies seeing any blood in his urine. About 3-4 years ago he was treated for kidney stones, but he states his symptoms are different this time. He denies any back/flank pain. Denies SOA. Date of Admission Jul 09, 2021 at 07:26 Date Seen by a Provider: Jul 09, 2021 Time Seen by a Provider: 09:15 I consulted on this patient on 07/09/21 11:11 Attending Physician Josue Lyons MD Admitting Physician Tyrone Gross MD Consult Allergies and Home Medications Allergies Coded Allergies: No Known Drug Allergies (Verified , 05/09/19) Patient Home Medication List Amitriptyline HCl (Amitriptyline HCl) 10 Mg Tablet, 10 MG PO HS, (Reported) Entered as Reported by: SOPHIA ROSALES on 07/09/211215 Last Action: Reviewed Cholecalciferol (Vitamin D3) (Vitamin D3) 25 Mcg Tablet, 25 MCG PO DAILY, (Reported) Entered as Reported by: SOPHIA ROSALES on 07/09/211215 Last Action: Reviewed Cyanocobalamin (Vitamin B-12) (Vitamin B-12) 1,000 Mcg Capsule, 1,000 MCG PO DAILY, (Reported) Entered as Reported by: SOPHIA ROSALES on 07/09/211215 Last Action: Reviewed Levothyroxine Sodium (Euthyrox) 175 Mcg Tablet, 175 MCG PO DAILY, (Reported) Entered as Reported by: SOPHIA ROSALES on 07/09/211215 Last Action: Reviewed Methylcellulose (Citrucel) 500 Mg Tablet, 1,000 MG PO DAILY, (Reported) Entered as Reported by: SOPHIA ROSALES on 07/09/211215 Last Action: Reviewed Multivit-Min/Iron/Folic Acid/K (Bariatric Mv-Iron 45 mg Cap) 1 Each Capsule, 1 EACH PO DAILY, (Reported) Entered as Reported by: SOPHIA ROSALES on 07/09/211215 Last Action: Reviewed Potassium Chloride (K-Tab ER) 10 Meq Tablet.er, 20 MEQ PO HS, (Reported) Entered as Reported by: SOPHIA ROSALES on 07/09/211215 Last Action: Reviewed Rosuvastatin Calcium (Rosuvastatin Calcium) 5 Mg Tablet, 5 MG PO HS, (Reported) Entered as Reported by: SOPHIA ROSALES on 07/09/211215 Last Action: Reviewed Vitamin B Complex (B Complex) 1 Each Tablet, 1 EACH PO DAILY, (Reported) Entered as Reported by: SOPHIA ROSALES on 07/09/211215 Last Action: Reviewed Discontinued Medications Hydrocodone/Acetaminophen (Lorcet 5-325 mg Tablet) 1 Each Tablet, 1-2 EACH PO Q4H PRN for PAIN-MODERATE Discontinued Reason: No Longer Taking Prescribed by: NIELS CORTES on 05/29/1914 Last Action: Discontinued Nitrofurantoin Monohyd/M-Cryst (Macrobid 100 mg Capsule) 100 Mg Capsule, 1 TAB PO BID Discontinued Reason: No Longer Taking Prescribed by: NIELS CORTES on 06/05/19 105 Last Action: Discontinued Tamsulosin HCl (Flomax) 0.4 Mg Cap, 0.4 MG PO DAILY Discontinued Reason: No Longer Taking Prescribed by: NIELS CORTES on 06/05/19 105 Last Action: Discontinued Past Xrvkppv-Nkwmnf-Hshush Hx Patient Social History Tobacco Use?: No Use of E-Cig and/or Vaping dev: No Substance use?: No Alcohol Use?: Yes Alcohol type: Other Additional alcohol type: gin Alcohol Frequency: Daily Additional Alcohol Comments: one at night Pt feels they are or have been: No Immunizations Up To Date Date of Influenza Vaccine: Aug 05, 2014 First/Initial COVID19 Vaccinat: 03/02 Second COVID19 Vaccination Kd: 03/02 Tetanus Booster (TDap): Unknown PED Vaccines UTD: Yes Date of Pneumonia Vaccine: May 28, 2008 Seasonal Allergies Seasonal Allergies: No Current Status Advance Directives: No Primary Language: Tuvaluan Preferred Spoken Language: Tuvaluan Sensory deficits: Vision impairment Implanted or Applied Medical D: None Past Medical History Surgeries: Abdominal, Orthopedic, Renal, Tonsillectomy Currently Using CPAP: No Currently Using BIPAP: No Benign Prostatic Hyperpl, Kidney Stones Hypothyroidsim Blood Disorders: No Adverse Reaction/Blood Tranf: No Family Medical History Arthritis 19 MOTHER Dementia GRANDMA Neoplasm 19 FATHER (THROAT CANCER AND MULTILPLE MYELOMA) Parkinson's disease PATERNAL GRANDFATHER No Pertinent Family Hx Review of Systems Constitutional: chills; No diaphoresis Respiratory: No cough, No short of breath Cardiovascular: No chest pain, No edema Gastrointestinal: No abdominal pain, No nausea, No vomiting Genitourinary: dysuria (burning), frequency Musculoskeletal: No back pain Physical Exam Vital Signs Vital Signs - First Documented 07/09/21 05:27 Temp 37.1 Pulse 84 Resp 18 B/P (MAP) 159/70 (99) Pulse Ox 95 O2 Delivery Room Air Capillary Refill : Less Than 3 Seconds Height, Weight, BMI Height: 6'2.00" Weight: 185lbs. 6.0oz. 84.813712fs; 23.73 BMI Method:Stated General Appearance: No Apparent Distress, WD/WN HEENT: PERRL/EOMI, Moist Mucous Membranes Neck: Normal Inspection, Supple Respiratory: Lungs Clear, No Accessory Muscle Use, No Respiratory Distress Cardiovascular: Regular Rate, Rhythm, No Murmur Gastrointestinal: Normal Bowel Sounds, Non Tender, Soft Back: No CVA Tenderness Extremity: Normal Inspection, No Pedal Edema Neurologic/Psychiatric: Alert, Oriented x3, Normal Mood/Affect Skin: Normal Color, Warm/Dry Assessment/Plan Assessment and Plan Nephrolithiasis Pancytopenia Possible UTI, awaiting culture results. Patient is non-septic CT abdomen- non-obstructing renal & bladder calculi IV fluids, Rocephin, Flomax Urology consult Admission Diagnosis Nephrolithiasis Pancytopenia Reason for Inpatient Admission: IV fluids, abx JOSUE LYONS MD 07/09/21 6726: History of Present Illness History of Present Illness Time Seen by a Provider: 10:05 Allergies and Home Medications Allergies Coded Allergies: No Known Drug Allergies (Verified , 05/09/19) Patient Home Medication List Home Medication List Reviewed: Yes Amitriptyline HCl (Amitriptyline HCl) 10 Mg Tablet, 10 MG PO HS, (Reported) Entered as Reported by: SOPHIA ROSALES on 07/09/211215 Last Action: Reviewed Cholecalciferol (Vitamin D3) (Vitamin D3) 25 Mcg Tablet, 25 MCG PO DAILY, (Reported) Entered as Reported by: SOPHIA ROSALES on 07/09/211215 Last Action: Reviewed Cyanocobalamin (Vitamin B-12) (Vitamin B-12) 1,000 Mcg Capsule, 1,000 MCG PO DAILY, (Reported) Entered as Reported by: SOPHIA ROSALES on 07/09/211215 Last Action: Reviewed Levothyroxine Sodium (Euthyrox) 175 Mcg Tablet, 175 MCG PO DAILY, (Reported) Entered as Reported by: SOPHIA ROSALES on 07/09/211215 Last Action: Reviewed Methylcellulose (Citrucel) 500 Mg Tablet, 1,000 MG PO DAILY, (Reported) Entered as Reported by: SOPHIA ROSALES on 07/09/211215 Last Action: Reviewed Multivit-Min/Iron/Folic Acid/K (Bariatric Mv-Iron 45 mg Cap) 1 Each Capsule, 1 EACH PO DAILY, (Reported) Entered as Reported by: SOPHIA ROSALES on 07/09/211215 Last Action: Reviewed Potassium Chloride (K-Tab ER) 10 Meq Tablet.er, 20 MEQ PO HS, (Reported) Entered as Reported by: SOPHIA ROSALES on 07/09/211215 Last Action: Reviewed Rosuvastatin Calcium (Rosuvastatin Calcium) 5 Mg Tablet, 5 MG PO HS, (Reported) Entered as Reported by: SOPHIA ROSALES on 07/09/211215 Last Action: Reviewed Vitamin B Complex (B Complex) 1 Each Tablet, 1 EACH PO DAILY, (Reported) Entered as Reported by: SOPHIA ROSALES on 07/09/211215 Last Action: Reviewed Discontinued Medications Hydrocodone/Acetaminophen (Lorcet 5-325 mg Tablet) 1 Each Tablet, 1-2 EACH PO Q4H PRN for PAIN-MODERATE Discontinued Reason: No Longer Taking Prescribed by: NIELS CORTES on 05/29/19 3995 Last Action: Discontinued Nitrofurantoin Monohyd/M-Cryst (Macrobid 100 mg Capsule) 100 Mg Capsule, 1 TAB PO BID Discontinued Reason: No Longer Taking Prescribed by: NIELS CORTES on 06/05/19 2394 Last Action: Discontinued Tamsulosin HCl (Flomax) 0.4 Mg Cap, 0.4 MG PO DAILY Discontinued Reason: No Longer Taking Prescribed by: NIELS CORTES on 06/05/19 1053 Last Action: Discontinued Past Gnpsurz-Uxfzwf-Rninmr Hx Past Medical History High Cholesterol Kidney Stones Hypothyroidsim Family Medical History Arthritis 19 MOTHER Dementia GRANDMA Neoplasm 19 FATHER (THROAT CANCER AND MULTILPLE MYELOMA) Parkinson's disease PATERNAL GRANDFATHER Physical Exam General Appearance: No Apparent Distress, WD/WN HEENT: PERRL/EOMI, Pharynx Normal Neck: Normal Inspection, Supple Respiratory: Lungs Clear, Normal Breath Sounds, No Respiratory Distress Cardiovascular: Regular Rate, Rhythm, No Edema, No Murmur Gastrointestinal: Normal Bowel Sounds, Non Tender, Soft Back: Normal Inspection, No CVA Tenderness Extremity: Normal Inspection, Non Tender, No Pedal Edema Neurologic/Psychiatric: Alert, Oriented x3, No Motor/Sensory Deficits, Normal Mood/Affect Skin: Normal Color, Warm/Dry Assessment/Plan Assessment and Plan Admitted with UTI, not septic. Started on Rocephin. CT revealed bilateral nonobstructing stones. Continue fluids and Flomax. New, mild pancytopenia likely due to infection. Will monitor. Likely underlying BPH. Admission Diagnosis Urinary tract infection, nephrolithiasis Admission Status: Inpatient Order (span 2 midnights) Reason for Inpatient Admission: IV fluids and antibiotics Supervisory-Addendum Brief Verification & Attestation Participated in pt care: history, MDM, physical Personally performed: exam, history, MDM, supervision of care Care discussed with: Medical Student Procedures: n/a Results interpretation: Verified all documentation A medical student performed and documented this service in my presence. I reviewed and verified all information documented by the medical student and made modifications to such information, when appropriate. I personally performed the physical exam and medical decision making. NEL SONG Jul 09, 2021 11:17 JOSUE LYONS MD Jul 09, 2021 18:29
[2021-07-09 12:00] VITALS: BP 111/58
[2021-07-09] MEDS ORDERED: MULT1CAP54 PO (12:16)
[2021-07-09] MEDS ORDERED: ROSU5TAB13 PO (12:16)
[2021-07-09] MEDS ORDERED: AMT10T PO (12:16)
[2021-07-09] MEDS ORDERED: METH500T5 PO (12:16)
[2021-07-09] MEDS ORDERED: POTA10TA PO (12:16)
[2021-07-09] MEDS ORDERED: LEVO175T58 PO (12:16)
[2021-07-09] MEDS ORDERED: CYAN-23 PO (12:16)
[2021-07-09] MEDS ORDERED: CHOL-34 PO (12:16)
[2021-07-09] MEDS ORDERED: VITA-189 PO (12:16)
[2021-07-09 16:00] VITALS: BP 99/57
[2021-07-09 16:01] VITALS: BP 99/57
[2021-07-09] MEDS ORDERED: TAMSULOSIN 0.4 MG (FLOMAX) CAP PO SCH (18:00)
[2021-07-09] MEDS: NS IV 1000 ML 1,000 ML IV SCH (18:54)
[2021-07-09 19:45] VITALS: BP 91/53
[2021-07-09 23:30] VITALS: BP 95/54
[2021-07-10] MEDS: NS IV 1000 ML 1,000 ML IV SCH ×2 (02:56→11:08)
[2021-07-10 03:45] VITALS: BP 108/70
[2021-07-10 05:33] LABS: BASOPHILS # (AUTO) 0.1 10^3/uL (0.0-0.1); BASOPHILS % (AUTO) 1 % (0-10); EOSINOPHILS # (AUTO) 0.2 10^3/uL (0.0-0.3); EOSINOPHILS % (AUTO) 2 % (0-10); HEMATOCRIT 33 % (40-54); HEMOGLOBIN 11.1 g/dL (13.3-17.7); LYMPHOCYTES # (AUTO) 1.5 10^3/uL (1.0-4.0); LYMPHOCYTES % (AUTO) 10 % (12-44); MEAN CORPUSCULAR HEMOGLOBIN 34 pg (25-34); MEAN CORPUSCULAR HGB CONC 33 g/dL (32-36); MEAN CORPUSCULAR VOLUME 103 fL (80-99); MEAN PLATELET VOLUME 10.1 fL (9.0-12.2); MONOCYTES # (AUTO) 1.5 10^3/uL (0.0-1.0); MONOCYTES % (AUTO) 10 % (0-12); NEUTROPHILS # (AUTO) 11.6 10^3/uL (1.8-7.8); NEUTROPHILS % (AUTO) 77 % (42-75); PLATELET COUNT 112 10^3/uL (130-400)
[2021-07-10 05:44] LABS: POTASSIUM 3.6 MMOL/L (3.6-5.0)
[2021-07-10 05:45] LABS: CALCIUM 7.8 MG/DL (8.5-10.1)
[2021-07-10 05:50] LABS: CREATININE SERUM 0.84 MG/DL (0.60-1.30)
[2021-07-10] MEDS ORDERED: cefTRIAXone 1,000 MG/SWFI 10 ML IV PUSH IV SCH ×2 (08:00)
[2021-07-10 08:17] VITALS: BP 104/67
[2021-07-10] MEDS ORDERED: SULF1TAB38 PO (10:08)
[2021-07-10 11:20] VITALS: BP 104/67
--- NOTE | 2021-07-10 12:19 | Discharge Summary ---
Discharge Summary Hospital Course Problems/Dx: (1) Urinary tract infection Status: Acute Qualifiers: Qualified Codes: N30.01 - Acute cystitis with hematuria (2) Bilateral kidney stones Status: Acute Hospital Course Date of Admission: Jul 09, 2021 at 07:26 Admission Diagnosis : UTI Family Physician/Provider: Durga Salvador MD Date of Discharge: 07/10/21 Discharge Diagnosis: UTI Hospital Course: Khurram Mcclendon II is a 76-year-old male who was admitted with urinary tract infection. He was started on IV Rocephin and his symptoms improved. He also had bilateral nonobstructing kidney stones. He was given IV fluids. He improved significantly and was transitioned to oral antibiotics. He will complete a course of Bactrim as an outpatient. His course was complicated by mild pancytopenia. He should have repeat blood work as an outpatient. He should follow-up with Dr. Salvador in a week or two. Labs and Pending Lab Test: Laboratory Tests 07/10/21 05:14: White Blood Count 15.0H, Red Blood Count 3.26L, Hemoglobin 11.1L, Hematocrit 33L , Mean Corpuscular Volume 103H, Mean Corpuscular Hemoglobin 34, Mean Corpuscular Hemoglobin Concent 33, Red Cell Distribution Width 12.7, Platelet Count 112L, Mean Platelet Volume 10.1, Immature Granulocyte % (Auto) 1, Neutrophils (%) (Auto) 77H, Lymphocytes (%) (Auto) 10L, Monocytes (%) (Auto) 10, Eosinophils (%) (Auto) 2, Basophils (%) (Auto) 1, Neutrophils # (Auto) 11.6H, Lymphocytes # (Auto) 1.5, Monocytes # (Auto) 1.5H, Eosinophils # (Auto) 0.2, Basophils # (Auto) 0.1, Immature Granulocyte # (Auto) 0.1, Sodium Level 140, Potassium Level 3.6, Chloride Level 109H, Carbon Dioxide Level 21, Anion Gap 10, Blood Urea Nitrogen 13, Creatinine 0.84, Estimat Glomerular Filtration Rate 89, BUN/Creatinine Ratio 15, Glucose Level 91, Calcium Level 7.8L Microbiology 07/09/21 Urine Culture - Preliminary, Resulted Gram Negative Bacillus 1 Home Meds Active Bactrim Ds Tablet (Sulfamethoxazole/Trimethoprim) 1 Each Tablet 1 Each PO BID 7 Days Reported Vitamin D3 (Cholecalciferol (Vitamin D3)) 25 Mcg Tablet 25 Mcg PO DAILY Vitamin B-12 (Cyanocobalamin (Vitamin B-12)) 1,000 Mcg Capsule 1,000 Mcg PO DAILY B Complex (Vitamin B Complex) 1 Each Tablet 1 Each PO DAILY Bariatric Mv-Iron 45 mg Cap (Multivit-Min/Iron/Folic Acid/K) 1 Each Capsule 1 Each PO DAILY Citrucel (Methylcellulose) 500 Mg Tablet 1,000 Mg PO DAILY Rosuvastatin Calcium 5 Mg Tablet 5 Mg PO HS Amitriptyline HCl 10 Mg Tablet 10 Mg PO HS Euthyrox (Levothyroxine Sodium) 175 Mcg Tablet 175 Mcg PO DAILY K-Tab ER (Potassium Chloride) 10 Meq Tablet.er 20 Meq PO HS TAKES 2 (10MEQ) TABS Assessment/Pt Instructions Take medications as prescribed. Follow up with your PCP. Return with worsening symptoms. Discharge Planning: <30 minutes discharge planning Discharge Instructions Discharge Diet: No Restrictions Activity as Tolerated: Yes Discharge Physical Examination Vital Signs Vital Signs Date Time Temp Pulse Resp B/P (MAP) Pulse Ox O2 Delivery O2 Flow Rate FiO2 07/10/21 11:20 36.4 61 20 104/67 97 Room Air General Appearance: No Apparent Distress, WD/WN Respiratory: Lungs Clear, Normal Breath Sounds, No Respiratory Distress Cardiovascular: Regular Rate, Rhythm, No Edema, No Murmur Gastrointestinal: Normal Bowel Sounds, Non Tender, Soft Extremity: Normal Inspection, Non Tender, No Pedal Edema Skin: Normal Color, Warm/Dry Neurologic/Psychiatric: Alert, Oriented x3, No Motor/Sensory Deficits, Normal Mood/Affect Allergies: Coded Allergies: No Known Drug Allergies (Verified , 05/09/19) Copy Copies To 1: DURGA SALVADOR MD Discharge Summary Date of Admission Jul 09, 2021 at 07:26 Date of Discharge Jul 10, 2021 at 11:20 Discharge Date: Jul 10, 2021 Discharge Time: 11:20 Admission Diagnosis UTI Discharge Diagnosis (1) Urinary tract infection Status: Acute Qualifiers: Qualified Codes: N30.01 - Acute cystitis with hematuria (2) Bilateral kidney stones Status: Acute JOSUE LYONS MD Jul 10, 2021 12:19
== END 2021-07-10 11:20 | disposition home or self-care (01) | DRG 690 ==
LOC: EDUNIT# 05:20 → ER 05:26 → 4TH 07:26
PROVIDERS: ADMIT Internal Medicine; ATTEND Internal Medicine
DX: N39.0 Urinary tract infection, site not specified (principal); D61.818 Other pancytopenia; N40.0 Benign prostatic hyperplasia without lower urinary tract symptoms; E03.9 Hypothyroidism, unspecified; Z79.890 Hormone replacement therapy; Z79.899 Other long term (current) drug therapy; N20.0 Calculus of kidney; E78.00 Pure hypercholesterolemia, unspecified
CPT/HCPCS: 36415; 71045; 74176; 80048; 80053; 81000; 83605; 85025; 85610; 85730; 87040; 87077; 87088; 87186; 96361; 96374